=== PATIENT | male | born 1990 | race American Indian/Alaskan Native ===

== ENCOUNTER 2016-08-29 13:47 | Emergency (ER) | payer BC ==
[2016-08-29 14:01] VITALS: BP 123/73
--- NOTE | 2016-08-29 14:59 | XRay Report ---
FINAL REPORT PROCEDURE: XR FOOT 3 LT TECHNIQUE: Two views of the left foot are obtained. HISTORY: pain/swelling with injury. COMPARISON: No prior studies are available for comparison. FINDINGS: Soft tissue swelling is seen. There is slight lucency in the base of the 5th metatarsal. Is uncertain if this is due to partially fused apophysis or possibly a nondisplaced fracture. No calcaneal plantar spur is seen. IMPRESSION: Diffuse soft tissue swelling is seen. Vague linear lucency is seen in the base of the 5th metatarsal that could be partially fused apophysis but may be nondisplaced fracture.
[2016-08-29] MEDS ORDERED: NORCO 5/325 PO ONE (15:14)
[2016-08-29] MEDS ORDERED: ZOFRAN ODT PO ONE (15:14)
--- NOTE | 2016-08-29 15:50 | Emergency Department Report ---
ED Extremity Problem HPI - General Chief complaint: Extremity Injury, Lower Stated complaint: FALL/LT FOOT POSS BROKEN Time Seen by Provider: 08/29/16 15:05 Source: patient Mode of arrival: Ambulatory Limitations: No Limitations - History of Present Illness Initial comments: PT c/o L foot injury that happened 2 days ago. PT states he still can not walk on the foot. PT states he has been using old broken crutches at home and has been taking Goody's powder but no relief. PT states that he injured his foot when he was chasing his boy and he fell down 4 concrete steps. PT denies any other injury from the fall. MD Complaint: extremity pain Onset/Timin -: days(s) Location: left, other (foot ) History of Same: No Severity scale (0 -10): 10 (when standing, 8/10 when sitting) Quality: sharp, constant Consistency: constant Improves with: elevation, rest Worsens with: weight bearing, walking, palpation Associated Symptoms: denies other symptoms - Related Data Previous Rx's Medication Instructions Recorded Last Taken Type Acetaminophen/Codeine [Tylenol #3] 1 tab PO Q6H PRN #12 tab 08/29/16 Unknown Rx Ibuprofen [Motrin] 600 mg PO Q8H PRN #15 tablet 08/29/16 Unknown Rx Allergies Allergy/AdvReac Type Severity Reaction Status Date / Time No Known Allergies Allergy Unverified 08/29/16 14:01 ED Review of Systems ROS: Stated complaint: FALL/LT FOOT POSS BROKEN Other details as noted in HPI Comment: All other systems reviewed and negative Constitutional: denies: chills, fever Cardiovascular: denies: chest pain Gastrointestinal: denies: abdominal pain Musculoskeletal: as per HPI Skin: change in color Neurological: abnormal gait (due to L foot pain ). denies: headache ED Past Medical Hx - Past Medical History Previous Medical History?: No - Surgical History Past Surgical History?: Yes Additional Surgical History: right inguinal hernia repair - Social History Smoking Status: Current Every Day Smoker Substance Use Type: None - Medications Home Medications: Home Medications Medication Instructions Recorded Confirmed Last Taken Type Acetaminophen/Codeine [Tylenol #3] 1 tab PO Q6H PRN #12 tab 08/29/16 Unknown Rx Ibuprofen [Motrin] 600 mg PO Q8H PRN #15 tablet 08/29/16 Unknown Rx ED Physical Exam - General Limitations: No Limitations General appearance: alert, in no apparent distress - Head Head exam: Present: atraumatic, normocephalic, normal inspection - Eye Eye exam: Present: normal appearance, PERRL, EOMI. Absent: conjunctival injection - ENT ENT exam: Present: normal exam, normal external ear exam - Neck Neck exam: Present: normal inspection, full ROM. Absent: tenderness - Respiratory Respiratory exam: Present: normal lung sounds bilaterally. Absent: respiratory distress, chest wall tenderness - Cardiovascular Cardiovascular Exam: Present: regular rate, normal rhythm, normal heart sounds - GI/Abdominal GI/Abdominal exam: Present: soft. Absent: tenderness - Extremities Exam Extremities exam: Present: tenderness, normal capillary refill. Absent: calf tenderness - Expanded Lower Extremity Exam Left Lower Leg exam: Present: normal inspection, full ROM. Absent: tenderness Ankle exam: Present: normal inspection, full ROM. Absent: tenderness Foot/Toe exam: Present: tenderness, swelling (to the lateral foot ), ecchymosis , tenderness at base of 5th metatarsal. Absent: full ROM, deformity Neuro vascular tendon exam: Present: no vascular compromise. Absent: pulse deficit, sensory deficit, foot drop - Back Exam Back exam: Present: normal inspection, full ROM - Neurological Exam Neurological exam: Present: alert, oriented X3 - Psychiatric Psychiatric exam: Present: normal affect, normal mood - Skin Skin exam: Present: warm, dry, intact, ecchymosis ED Course Vital Signs 08/29/16 13:58 Temperature 98.3 F Pulse Rate 83 Respiratory 18 Rate Blood Pressure 123/73 O2 Sat by Pulse 100 Oximetry - Reevaluation(s) Reevaluation #1: 08/29/16 16:45 Nursing staff applied splint, pt NVI. - Pulse Oximetry Interpretation Digit-Finger Initial Pulse Oximetry Readin Actions Taken: none ED Medical Decision Making - Radiology Data Radiology results: report reviewed XR L foot- possible nondisplaced fx base of the 5th metatarsal - Differential Diagnosis fracture, contusion, sprain Critical Care Time: No Critical care attestation.: If time is entered above; I have spent that time in minutes in the direct care of this critically ill patient, excluding procedure time. ED Disposition Clinical Impression: Foot fracture, left Qualifiers: Encounter type: initial encounter Fracture type: closed Qualified Code(s): S92.902A - Unspecified fracture of left foot, initial encounter for closed fracture Disposition: DISCHARGED TO HOME OR SELFCARE Is pt being admited?: No Does the pt Need Aspirin: No Condition: Stable Instructions: Crutch Instructions (ED), Foot Fracture in Adults (ED), RICE Therapy (ED) Additional Instructions: No driving or ETOH after Tylenol #3 Prescriptions: Acetaminophen/Codeine [Tylenol #3] 1 tab PO Q6H PRN #12 tab PRN Reason: Pain , Severe (7-10) Ibuprofen [Motrin] 600 mg PO Q8H PRN #15 tablet PRN Reason: Pain Referrals: PRIMARY CARE, [Primary Care Provider] - 3-5 Days HUGO FONTAINE MD [Staff Physician] - 3-5 Days Time of Disposition: 15:55
== END 2016-08-29 16:57 | disposition home or self-care (01) ==
LOC: ED 13:47
DX: S92.902A Unspecified fracture of left foot, initial encounter for closed fracture (principal); F17.200 Nicotine dependence, unspecified, uncomplicated; W10.9XXA Fall (on) (from) unspecified stairs and steps, initial encounter; Y93.9 Activity, unspecified; Y92.9 Unspecified place or not applicable; Y99.9 Unspecified external cause status
CPT/HCPCS: 99283; Q0162

== ENCOUNTER 2016-11-14 14:20 | Emergency (ER) | payer BC ==
[2016-11-14 16:32] LABS: Bilirubin,Urine NEG (Negative); Blood,Urine NEG (Negative); Ketones,Urine NEG (Negative); Leukocyte Esterase,Urine NEG (Negative); Nitrite,Urine NEG (Negative); Protein,Urine <15 mg/dL mg/dL (Negative); Urobilinogen,Urine < 2.0 mg/dL (<2.0)
[2016-11-14] MEDS ORDERED: FLEXERIL PO ONE (18:49)
[2016-11-14] MEDS ORDERED: TORADOL IV ONE (18:49)
--- NOTE | 2016-11-14 18:49 | Emergency Department Report ---
HPI - General Chief Complaint: Back Pain/Injury Time Seen by Provider: 11/14/16 18:48 - HPI HPI: 25-year-old with no past medical history presents the ED with low back pain, for the tenderness started after walking yesterday. He denies any loss of urinalysis or loss of bowel. He denies any dysuria. He denies any blood in the urine. He has taken Motrin for his symptoms with only mild relief. ED Past Medical Hx - Past Medical History Previous Medical History?: No - Surgical History Past Surgical History?: No Additional Surgical History: right inguinal hernia repair - Social History Smoking Status: Current Every Day Smoker Substance Use Type: None - Medications Home Medications: Home Medications Medication Instructions Recorded Confirmed Last Taken Type Acetaminophen/Codeine [Tylenol #3] 1 tab PO Q6H PRN #12 tab 08/29/16 Unknown Rx Ibuprofen [Motrin] 600 mg PO Q8H PRN #15 tablet 08/29/16 Unknown Rx Cyclobenzaprine [Flexeril] 10 mg PO DAILY PRN #14 tablet 11/14/16 Unknown Rx ED Review of Systems ROS: Stated complaint: KIDNEY PAIN Other details as noted in HPI Comment: All other systems reviewed and negative Constitutional: no symptoms reported Respiratory: no symptoms reported Genitourinary: other Musculoskeletal: back pain Physical Exam - Physical Exam Vital Signs: Vital Signs 11/14/16 15:39 Temperature 98.8 F Pulse Rate 79 Respiratory 20 Rate Blood Pressure 136/90 O2 Sat by Pulse 99 Oximetry Physical Exam: Gen. alert and oriented 3 in no distress Head atraumatic normocephalic Eyes PERR LA EOMI Chest regular rate and rhythm normal S1-S2 lungs clear bilaterally Abdomen soft nondistended Back no point tenderness mild paravertebral tenderness Neuro no focal deficit. Psych normal mood. ED Course Vital Signs 11/14/16 15:39 Temperature 98.8 F Pulse Rate 79 Respiratory 20 Rate Blood Pressure 136/90 O2 Sat by Pulse 99 Oximetry - Reevaluation(s) Reevaluation #1: 11/14/16 18:57 He is better wants to go home. Critical care attestation.: If time is entered above; I have spent that time in minutes in the direct care of this critically ill patient, excluding procedure time. ED Disposition Clinical Impression: Back pain, Lumbosacral strain Disposition: DC-01 TO HOME OR SELFCARE Is pt being admited?: No Does the pt Need Aspirin: No Condition: Stable Instructions: Low Back Strain (ED) Prescriptions: Cyclobenzaprine [Flexeril] 10 mg PO DAILY PRN #14 tablet PRN Reason: Muscle Spasm Forms: Work/School Release Form(ED)
[2016-11-14 19:28] VITALS: BP 140/88
== END 2016-11-14 19:13 | disposition home or self-care (01) ==
LOC: ED 14:20
DX: S39.012A Strain of muscle, fascia and tendon of lower back, initial encounter (principal); F17.210 Nicotine dependence, cigarettes, uncomplicated; X58.XXXA Exposure to other specified factors, initial encounter; Y93.01 Activity, walking, marching and hiking; Y92.89 Other specified places as the place of occurrence of the external cause; Y99.8 Other external cause status
CPT/HCPCS: 81001; 96374; 99283; J1885

== ENCOUNTER 2018-11-06 12:29 | Inpatient (IN) | payer BC ==
--- NOTE | 2018-11-06 13:00 | Emergency Department Report ---
HPI <EPSTEINJOSE ANTONIO - Last Filed: 11/06/18 17:42> - HPI HPI: 27-year-old -Spanish male presents to the emergency department with complaint of left lower quadrant abdominal pain that began last night, along with some associated nausea without vomiting. The patient was here on May 02 of this year for similar complaints and was found to have an area of colitis and a small area of intestinal perforation. The patient was treated with IV antibiotics and monitoring, instead of going to the operating room for colon resection and colostomy. Patient says that he has been steadily improving until last night. The patient was following up outpatient with gastroenterology and says that he was due to have a colonoscopy last week but he missed his appointment. He has not taken anything for his symptoms prior to arrival today. <GIANA WISDOM Nadine - Last Filed: 11/07/18 09:59> - General Chief Complaint: Abdominal Pain Time Seen by Provider: 11/06/18 12:47 ED Past Medical Hx <CHELSIJOSE ANTONIO - Last Filed: 11/06/18 17:42> - Past Medical History Hx Congestive Heart Failure: No Hx Diabetes: No Hx Pulmonary Embolism: No Hx Asthma: No Hx COPD: No Hx Tuberculosis: No Hx HIV: No Additional medical history: perferated colon - Surgical History Hx Internal Defibrillator: No Additional Surgical History: right inguinal hernia repair - Social History Smoking Status: Current Every Day Smoker Substance Use Type: None <GIANA WISDOM - Last Filed: 11/07/18 09:59> - Medications Home Medications: Home Medications Medication Instructions Recorded Confirmed Last Taken Type Acetaminophen [Acetaminophen 650 mg SD Q4H PRN #8 supp.rect 05/06/18 Unknown Rx SUPPOS] Acetaminophen [Acetaminophen TAB] 650 mg PO Q8H PRN #12 tablet 05/06/18 Unknown Rx Amoxicillin/Potassium Clav 1 each PO BID #20 tablet 05/06/18 Unknown Rx [Augmentin 875-125 Tablet] HYDROcodone/ACETAMINOPHEN [[place] 1 each PO Q6H PRN #12 tablet 05/06/18 Unknown Rx 5-325 Tablet] Ondansetron [Zofran Odt] 4 mg PO Q4H PRN #20 tab.rapdis 05/06/18 Unknown Rx metroNIDAZOLE [Flagyl] 500 mg PO TID #30 tablet 05/06/18 Unknown Rx HYDROcodone/APAP 5-325 [[place] 1 each PO Q6HR PRN #12 tablet 11/06/18 Unknown Rx 5/325] ED Review of Systems ROS: Stated complaint: ABD PAIN Other details as noted in HPI <JOSE ANTONIO EPSTEIN - Last Filed: 11/06/18 17:42> ROS: Stated complaint: ABD PAIN Other details as noted in HPI Comment: All other systems reviewed and negative Constitutional: denies: chills, fever Eyes: denies: eye pain, vision change ENT: denies: ear pain, throat pain Respiratory: denies: cough, shortness of breath Cardiovascular: denies: chest pain, palpitations Gastrointestinal: abdominal pain, nausea Genitourinary: denies: dysuria, discharge Musculoskeletal: denies: back pain, arthralgia Skin: denies: rash, lesions Neurological: denies: headache, weakness <GIANA WISDOM - Last Filed: 11/07/18 09:59> Physical Exam - Physical Exam Vital Signs: Vital Signs 11/06/18 11/06/18 11/06/18 12:42 13:00 14:22 Temperature 98.3 F Pulse Rate 81 Respiratory 17 10 L 12 Rate Blood Pressure 113/75 Blood Pressure [Left] O2 Sat by Pulse 100 Oximetry 11/06/18 15:21 Temperature Pulse Rate 82 Respiratory 16 Rate Blood Pressure Blood Pressure 127/85 [Left] O2 Sat by Pulse 98 Oximetry <JOSE ANTONIO EPSTEIN - Last Filed: 11/06/18 17:42> - Physical Exam Vital Signs: Vital Signs 11/06/18 12:42 Temperature 98.3 F Pulse Rate 81 Respiratory 17 Rate Blood Pressure 113/75 O2 Sat by Pulse 100 Oximetry Physical Exam: GENERAL: The patient is well-developed well-nourished. HENT: Normocephalic. Atraumatic. Patient has moist mucous membranes. EYES: Extraocular motions are intact. NECK: Supple. Trachea is midline. CHEST/LUNGS: Clear to auscultation. There is no respiratory distress noted. HEART/CARDIOVASCULAR: Regular. There is no tachycardia. There is no murmur. ABDOMEN: Abdomen is soft. There is some reproducible left lower quadrant tenderness to palpation of the abdomen. No guarding. Patient has normal bowel sounds. There is no abdominal distention. SKIN: Skin is warm and dry. NEURO: The patient is awake, alert, and oriented. The patient is cooperative. The patient has no focal neurologic deficits. The patient has normal speech. MUSCULOSKELETAL: There is no tenderness or deformity. There is no evidence of acute injury. <GIANA WISDOM - Last Filed: 11/07/18 09:59> ED Course Vital Signs 11/06/18 11/06/18 11/06/18 12:42 13:00 14:22 Temperature 98.3 F Pulse Rate 81 Respiratory 17 10 L 12 Rate Blood Pressure 113/75 Blood Pressure [Left] O2 Sat by Pulse 100 Oximetry 11/06/18 15:21 Temperature Pulse Rate 82 Respiratory 16 Rate Blood Pressure Blood Pressure 127/85 [Left] O2 Sat by Pulse 98 Oximetry <CHELSIJOSE ANTONIO - Last Filed: 11/06/18 17:42> Vital Signs 11/06/18 12:42 Temperature 98.3 F Pulse Rate 81 Respiratory 17 Rate Blood Pressure 113/75 O2 Sat by Pulse 100 Oximetry <GIANA WISDOM S - Last Filed: 11/07/18 09:59> ED Medical Decision Making - Lab Data Result diagrams: 11/06/18 13:51 11/06/18 13:51 - Radiology Data Radiology results: report reviewed 2.5 cm abscess in the left lower abdomen seen on CT abdomen and pelvis scan - Medical Decision Making I reviewed surgical consultation from May, diagnosis acute colitis. According to CT scan in May, mid descending colon was affected with colitis with adjacent foci free air concerning for localized perforation. Today CT scan reveals 2.5 cm abscess in the left abdomen. Differential diagnosis includes inflammatory bowel disease versus infectious e tiology. I spoke with Mr. Wilks. He did not follow-up with GI to have the diagnostic colonoscopy as recommended. I have consulted general surgeon. Admitted to the hospital service. <EPSTEINJOSE ANTONIO - Last Filed: 11/06/18 17:42> - Lab Data Result diagrams: 11/07/18 04:36 11/07/18 04:36 - Radiology Data CT ABDOMEN AND PELVIS WITHOUT CONTRAST HISTORY: Left lower quadrant abdominal pain for one day. COMPARISON: None. TECHNIQUE: CT images of the abdomen and pelvis were obtained without admini stration of intravenous contrast. Sagittal and coronal reformatted images. All CT scans at this location are performed using CT dose reduction for ALARA by means of automated exposure control. FINDINGS: Lungs/bones: Normal. Abdomen/pelvis: There is a 2.5 cm fluid collection containing gas just anterior to the descending colon on image 92 of series 2. This has the appearance of a small abscess. This system an abscess appears to partially extend into the left lateral abdominal wall. The colon in this area is unremarkable. No significant diverticular disease. No evidence for bowel obstr uction or focal bowel wall thickening. The appendix is normal. There is mild fatty infiltration throughout the liver. The biliary system, pancreas, spleen, kidneys and adrenal glands are unremarkable. The aorta and remaining vascular structures are unremarkable. The bladder is normal. No evidence for ascites, free air or adenopathy. IMPRESSION: 1. 2.5 cm fluid collection in the left abdomen containing gas consistent with a small abscess. The etiology of this abscess is unclear. There is no significant diverticular disease in the descending colon. - Medical Decision Making I initially saw this patient in the emergency department for the complaint of s ome acute left lower quadrant abdominal pain. He has a history of having colitis and some subsequent mild perforation of the colon in May of this year. At that time they decided to go with a watch and wait scenario with antibiotics as opposed to surgical intervention. The patient appeared to be improving. However he admits to noncompliance to follow up with gastroenterology and his recent colonoscopy. Patient's labs have been unremarkable including no significant leukocytosis. Vital signs stable throughout his records including being afebrile. Abdominal x-ray does not show any acute process. Her CT scan with IV contrast was done. This was signed out to my colleague, Dr. Epstein, to follow up with results with the plan of discharge if normal and consultation and/or admission if necessary. In reviewing the CT scan results, it shows that he has a 2.5 cm abscess to the left lower abdomen with unknown etiology. General surgery was contacted and the patient was admitted to the hospitalist service. - Differential Diagnosis diverticulitis, abscess, perforation, constipation <GIANA WISDOM - Last Filed: 11/07/18 09:59> Critical care attestation.: If time is entered above; I have spent that time in minutes in the direct care of this critically ill patient, excluding procedure time. <JOSE ANTONIO EPSTEIN - Last Filed: 11/06/18 17:42> Critical Care Time: No Critical care attestation.: If time is entered above; I have spent that time in minutes in the direct care of this critically ill patient, excluding procedure time. <GIANA WISDOM - Last Filed: 11/07/18 09:59> ED Disposition Is pt being admited?: No Does the pt Need Aspirin: No <JOSE ANTONIO EPSTEIN - Last Filed: 11/06/18 17:42> Is pt being admited?: Yes Time of Disposition: 16:00 <GIANA WISDOM - Last Filed: 11/07/18 09:59> Clinical Impression: Abdominal abscess Abdominal pain Qualifiers: Abdominal location: left lower quadrant Qualified Code(s): R10.32 - Left lower quadrant pain Disposition: OP ADMIT IP TO THIS HOSP Condition: Fair
--- NOTE | 2018-11-06 13:27 | XRay Report ---
ABDOMEN 2 VIEW(S) INDICATION / CLINICAL INFORMATION: Abd pain. COMPARISON: CT of the abdomen and pelvis on 05/05/2018 FINDINGS: TUBES / LINES: None. BOWEL GAS PATTERN/EXTRALUMINAL GAS: No significant abnormality. No pneumatosis or free air identified . ADDITIONAL FINDINGS: No significant additional findings. IMPRESSION: 1. No acute findings. Signer Name: Jayson Gutiérrez MD Signed: 11/06/2018 1:22 PM Workstation Name: [id number]
[2018-11-06] MEDS ORDERED: NACL 0.9% 1000 ML 1,000 ML IV ONE (13:59)
[2018-11-06] MEDS ORDERED: MORPHINE IV ONE ×2 (13:59→17:24)
[2018-11-06 14:08] LABS: Basophils % (Auto) 0.2 % (0.0-1.8); Eosinophils % (Auto) 0.3 % (0.0-4.3); Hematocrit 42.1 % (35.5-45.6); Hemoglobin 14.2 gm/dl (11.8-15.2); Lymphocytes # (Auto) 2.3 K/mm3 (1.2-5.4); Lymphocytes % (Auto) 25.5 % (13.4-35.0); Mean Corpuscular HGB Conc 34 % (32-34); Mean Corpuscular Volume 90 fl (84-94); Monocytes # (Auto) 0.6 K/mm3 (0.0-0.8); Monocytes % (Auto) 6.7 % (0.0-7.3); Platelet Count 149 K/mm3 (140-440); Red Blood Count 4.66 M/mm3 (3.65-5.03); Red Cell Distribution Width 13.9 % (13.2-15.2)
[2018-11-06 14:28] LABS: Alanine Aminotransferase 54 units/L (7-56); Albumin 4.1 g/dL (3.9-5); BUN/Creatinine Ratio 17; Blood Urea Nitrogen 12 mg/dL (9-20); Calcium 9.1 mg/dL (8.4-10.2); Hemolysis Index 5
[2018-11-06 14:31] LABS: Bilirubin,Direct < 0.2 mg/dL (0-0.2)
--- NOTE | 2018-11-06 16:22 | Cat Scan Report ---
CT ABDOMEN AND PELVIS WITHOUT CONTRAST HISTORY: Left lower quadrant abdominal pain for one day. COMPARISON: None. TECHNIQUE: CT images of the abdomen and pelvis were obtained without administration of intravenous co ntrast. Sagittal and coronal reformatted images. All CT scans at this location are performed using CT dose reduction for ALARA by means of automated exposure control. FINDINGS: Lungs/bones: Normal. Abdomen/pelvis: There is a 2.5 cm fluid collection containing gas just anterior to the descending co juan r on image 92 of series 2. This has the appearance of a small abscess. This system an abscess appea rs to partially extend into the left lateral abdominal wall. The colon in this area is unremarkable. No significant diverticular disease. No evidence for bowel obstruction or focal bowel wall thickening . The appendix is normal. There is mild fatty infiltration throughout the liver. The biliary system, pancreas, spleen, kidneys and adrenal glands are unremarkable. The aorta and remaining vascular structures are unremarkable. The bladder is normal. No evidence for ascites, free air or adenopathy. IMPRESSION: 1. 2.5 cm fluid collection in the left abdomen containing gas consistent with a small abscess. The et iology of this abscess is unclear. There is no significant diverticular disease in the descending col on. Signer Name: Aubrey Olea Jr, MD Signed: 11/06/2018 4:18 PM Workstation Name: [id number]
[2018-11-06] MEDS ORDERED: ZOFRAN IV ONE (17:24)
[2018-11-06] MEDS ORDERED: NACL 0.9% 1000 ML IV ONE (18:17)
[2018-11-06] MEDS ORDERED: NACL 0.9% 1000 ML 3,000 ML ONE (20:25)
[2018-11-06] MEDS ORDERED: DILAUDID IV PRN (20:36)
[2018-11-06] MEDS ORDERED: DILAUDID ONE (20:40)
[2018-11-06] MEDS ORDERED: MAXIPIME/NS 2 GM/100 ML 2 GM/100 ML BAG IV SCH (22:00)
--- NOTE | 2018-11-06 22:41 | History and Physical Report ---
History of Present Illness Date of examination: 11/06/18 Date of admission: 11/06/18 17:43 Chief complaint: Abdominal pain since last night History of present illness: 27-year-old -[place] male presents to the emergency department with left lower quadrant abdominal pain that began last night, along with some associated nausea without vomiting. The patient was here on May 02 of this year for similar complaints and was found to have an area of colitis and a small area of intestinal perforation. The patient was treated with IV antibiotics and monitoring, instead of going to the operating room for colon resection and colostomy. Patient says that he has been steadily improving until last night. The patient was following up outpatient with gastroenterology and says that he was due to have a colonoscopy last week but he missed his appointment. He has not taken anything for his symptoms prior to arrival today. Hospitalization discharge from 05/02/18 through 05/06/18 Condition: Stable Hospital course: Patient is 27 yo black male without chronic medical problem who presented with abdominal pains. * CT abd/pelvis with and without contrast IMPRESSION: Thickening of the wall of the mid descending colon, concerning for colitis of infectious, inflammatory, or less likely ischemic causes. Adjacent foci of free air as well as small amount of free fluid in the left paracolic gutter and pelvis concerning for localized perforation. * 2v CXR: no acute findings -Abd pains with acute Colitis with localized microperforation most likely fi shbone (he ate whiten fish day prior to abd pains) vs IBD vs other: Gen surgery is following, start diet, monitor closely, d/w GI, this perforation possible is fishbone perforation. -Sepsis Colitis, poa: GI following, treat with iv abx, IVF and follow cultures -Hypokalemia: replete and recheck -UTI ruled out -Thrombocytopenia, possible infection related: repeat and monitor closely, stopped sq lovenox, resolved -Constipation: dulcolax suppository given with success Patient demands to go home, he did have a mild temp of 100.2 around 10pm last night, d/w Dr. Ramires and patient, Ok to d/c per Surgeon. Disposition: TO HOME OR SELFCARE Time spent for discharge: 35 minutes ---- Past Medical History perferated colon Surgical History Hx Internal Defibrillator: No Additional Surgical History: right inguinal hernia repair Social History Smoking Status: Current Every Day Smoker Substance Use Type: None Family History Htn Review of Systems ROS: Stated complaint: ABD PAIN Other details as noted in HPI Comment: All other systems reviewed and negative Constitutional: denies: chills, fever Eyes: denies: eye pain, vision change ENT: denies: ear pain, throat pain Respiratory: denies: cough, shortness of breath Cardiovascular: denies: chest pain, palpitations Gastrointestinal: abdominal pain, nausea Genitourinary: denies: dysuria, discharge Musculoskeletal: denies: back pain, arthralgia Skin: denies: rash, lesions Neurological: denies: headache, weakness Medications and Allergies Allergies Allergy/AdvReac Type Severity Reaction Status Date / Time No Known Allergies Allergy Unverified 08/29/16 14:01 Home Medications Medication Instructions Recorded Confirmed Last Taken Type Acetaminophen [Acetaminophen 650 mg RI Q4H PRN #8 supp.rect 05/06/18 Unknown Rx SUPPOS] Acetaminophen [Acetaminophen TAB] 650 mg PO Q8H PRN #12 tablet 05/06/18 Unknown Rx Amoxicillin/Potassium Clav 1 each PO BID #20 tablet 05/06/18 Unknown Rx [Augmentin 875-125 Tablet] HYDROcodone/ACETAMINOPHEN [[place] 1 each PO Q6H PRN #12 tablet 05/06/18 Unknown Rx 5-325 Tablet] Ondansetron [Zofran Odt] 4 mg PO Q4H PRN #20 tab.rapdis 05/06/18 Unknown Rx metroNIDAZOLE [Flagyl] 500 mg PO TID #30 tablet 05/06/18 Unknown Rx HYDROcodone/APAP 5-325 [[place] 1 each PO Q6HR PRN #12 tablet 11/06/18 Unknown Rx 5/325] Active Meds: Active Medications Hydromorphone HCl (Dilaudid) 0.5 mg IV Q3H PRN PRN Reason: Pain , Severe (7-10) Last Admin: 11/06/18 20:48 Dose: 0.5 mg Documented by: Cefepime HCl (Maxipime/Ns 2 Gm/100 Ml) 2 gm in 100 mls @ 200 mls/hr IV Q8HR MENDOZA; Protocol Metronidazole (Flagyl 500 Mg/100 Ml) 500 mg in 100 mls @ 100 mls/hr IV Q8HR MENDOZA; Protocol Exam - Constitutional Vitals: Temp Pulse Resp BP Pulse Ox 99.5 F 78 20 121/83 99 11/06/18 21:26 11/06/18 21:26 11/06/18 21:26 11/06/18 21:26 11/06/18 21:26 General appearance: Present: no acute distress, well-nourished - EENT Eyes: Present: PERRL ENT: hearing intact, clear oral mucosa - Neck Neck: Present: supple, normal ROM - Respiratory Respiratory effort: normal Respiratory: bilateral: CTA - Cardiovascular Heart rate: 78 Rhythm: regular Heart Sounds: Present: S1 & S2. Absent: rub, click - Extremities Extremities: no ischemia, pulses intact, pulses symmetrical, No edema Peripheral Pulses: within normal limits - Abdominal General gastrointestinal: Present: soft, non-tender, non-distended, normal bowel sounds Localized gastrointestinal: tender: LLQ, guarding: LLQ Male genitourinary: Present: normal - Rectal Rectal Exam: deferred - Integumentary Integumentary: Present: clear, warm, dry - Musculoskeletal Musculoskeletal: gait normal, strength equal bilaterally - Psychiatric Psychiatric: appropriate mood/affect, intact judgment & insight - Neurologic Neurologic: CNII-XII intact, moves all extremities - Allied Health Allied health notes reviewed: nursing, case management Results - Labs CBC & Chem 7: 11/07/18 04:36 11/07/18 04:36 Labs: Laboratory Last Values WBC 8.8 K/mm3 (4.5-11.0) 11/06/18 13:51 RBC 4.66 M/mm3 (3.65-5.03) 11/06/18 13:51 Hgb 14.2 gm/dl (11.8-15.2) 11/06/18 13:51 Hct 42.1 % (35.5-45.6) 11/06/18 13:51 MCV 90 fl (84-94) 11/06/18 13:51 MCH 30 pg (28-32) 11/06/18 13:51 MCHC 34 % (32-34) 11/06/18 13:51 RDW 13.9 % (13.2-15.2) 11/06/18 13:51 Plt Count 149 K/mm3 (140-440) 11/06/18 13:51 Lymph % (Auto) 25.5 % (13.4-35.0) 11/06/18 13:51 Dare % (Auto) 6.7 % (0.0-7.3) 11/06/18 13:51 Eos % (Auto) 0.3 % (0.0-4.3) 11/06/18 13:51 Baso % (Auto) 0.2 % (0.0-1.8) 11/06/18 13:51 Lymph # 2.3 K/mm3 (1.2-5.4) 11/06/18 13:51 Dare # 0.6 K/mm3 (0.0-0.8) 11/06/18 13:51 Eos # 0.0 K/mm3 (0.0-0.4) 11/06/18 13:51 Baso # 0.0 K/mm3 (0.0-0.1) 11/06/18 13:51 Seg Neutrophils % 67.3 % (40.0-70.0) 11/06/18 13:51 Seg Neutrophils # 5.9 K/mm3 (1.8-7.7) 11/06/18 13:51 Sodium 138 mmol/L (137-145) 11/06/18 13:51 Potassium 3.7 mmol/L (3.6-5.0) 11/06/18 13:51 Chloride 102.9 mmol/L (98-107) 11/06/18 13:51 Carbon Dioxide 25 mmol/L (22-30) 11/06/18 13:51 14 mmol/L 11/06/18 13:51 BUN 12 mg/dL (9-20) 11/06/18 13:51 0.7 mg/dL (0.8-1.5) L 11/06/18 13:51 Estimated GFR > 60 ml/min 11/06/18 13:51 17 % 11/06/18 13:51 Glucose 99 mg/dL (75-100) 11/06/18 13:51 Calcium 9.1 mg/dL (8.4-10.2) 11/06/18 13:51 0.60 mg/dL (0.1-1.2) 11/06/18 13:51 < 0.2 mg/dL (0-0.2) 11/06/18 13:51 AST 23 units/L (5-40) 11/06/18 13:51 ALT 54 units/L (7-56) 11/06/18 13:51 63 units/L (35-129) 11/06/18 13:51 7.5 g/dL (6.3-8.2) 11/06/18 13:51 4.1 g/dL (3.9-5) 11/06/18 13:51 1.2 % 11/06/18 13:51 32 units/L (13-60) 11/06/18 13:51 - Imaging and Cardiology Imaging and Cardiology: CT Abdomen IMPRESSION: 1. 2.5 cm fluid collection in the left abdomen containing gas consistent with a small abscess. The etiology of this abscess is unclear. There is no significant diverticular disease in the descending colon. Assessment and Plan Advance Directives: Yes (Full code) VTE prophylaxis?: Chemical Plan of care discussed with patient/family: Yes - Patient Problems (1) Abdominal abscess Current Visit: Yes Status: Acute Plan to address problem: Had Colitis and microperforation inJan 2019 Went home AMA without proper ABX covcolleenage Was supposed to have a colonoscopy recently which he missed Started on IV Zosyn amd IV F;agy; Santa surgery consult and GI consult requested (2) DVT prophylaxis Current Visit: No Status: Acute Plan to address problem: OnLovenox and GI prophylaxis
[2018-11-06] MEDS ORDERED: TYLENOL PO PRN (22:46)
[2018-11-06] MEDS ORDERED: ZOFRAN IV PRN (22:46)
[2018-11-06] MEDS ORDERED: SODIUM CHLORIDE FLUSH SYRINGE 10 ML IV PRN (22:46)
[2018-11-06 22:54] LABS: Bilirubin,Urine NEG (Negative); Blood,Urine NEG (Negative); Color,Urine Yellow (Yellow); Mucus,Urine FEW /HPF; Protein,Urine <15 mg/dL mg/dL (Negative); RBC,Urine < 1.0 /HPF (0.0-6.0); Urobilinogen,Urine < 2.0 mg/dL (<2.0); WBC,Urine < 1.0 /HPF (0.0-6.0)
[2018-11-06] MEDS: FLAGYL 500 MG/100 ML 500 MG/100 ML BAG IV SCH (23:04)
[2018-11-06] MEDS: D5NS 1,000 ML IV SCH (23:04)
[2018-11-06] MEDS: SODIUM CHLORIDE FLUSH SYRINGE 10 ML IV SCH (23:05)
[2018-11-06] MEDS: DILAUDID IV PRN (23:05)
[2018-11-07] MEDS: ZOSYN/NS 4.5GM/100ML 4.5 GM/100 ML VIAL IV SCH ×4 (00:35→22:01)
[2018-11-07] MEDS: DILAUDID IV PRN ×4 (02:20→19:04)
[2018-11-07 05:22] LABS: Basophils % (Auto) 0.2 % (0.0-1.8); Eosinophils % (Auto) 0.2 % (0.0-4.3); Hematocrit 39.6 % (35.5-45.6); Hemoglobin 13.6 gm/dl (11.8-15.2); Lymphocytes # (Auto) 2.1 K/mm3 (1.2-5.4); Lymphocytes % (Auto) 19.6 % (13.4-35.0); Mean Corpuscular HGB Conc 34 % (32-34); Mean Corpuscular Volume 90 fl (84-94); Monocytes # (Auto) 0.9 K/mm3 (0.0-0.8); Platelet Count 139 K/mm3 (140-440); Red Blood Count 4.38 M/mm3 (3.65-5.03); Red Cell Distribution Width 13.8 % (13.2-15.2)
[2018-11-07 05:53] LABS: Alanine Aminotransferase 42 units/L (7-56); Albumin 3.7 g/dL (3.9-5); BUN/Creatinine Ratio 13; Blood Urea Nitrogen 9 mg/dL (9-20); Calcium 8.4 mg/dL (8.4-10.2); Hemolysis Index 4
[2018-11-07] MEDS: FLAGYL 500 MG/100 ML 500 MG/100 ML BAG IV SCH ×2 (07:51→13:10)
[2018-11-07] MEDS: PEPCID IV SCH ×2 (10:10→22:02)
[2018-11-07] MEDS: SODIUM CHLORIDE FLUSH SYRINGE 10 ML IV SCH ×2 (10:10→22:02)
--- NOTE | 2018-11-07 10:51 | Consultation ---
History of Present Illness Consult date: 11/07/18 Reason for consult: abdominal pain Requesting physician: NATALI BLACK Chief complaint: left sided abdominal pain - History of present illness History of present illness: 27yo M returns with left-sided abdominal pain. We previously met him in May of this year for a presumed small perforation near the descending colon. It is documented that patient ultimately demanded to be discharged (he denies that) and was soon after taken by his mother to the hospital in [place]. He reports that in [place] they admitted him. He was found to have a well- defined abscess that was drained. He says the drain was in place for 3 days. PICC line was placed and he had antibiotics for 10-14 days. He did not get any follow-up scans. He did not follow-up with the senior qualitative researcher or the surgeon. They recommended a colonoscopy and possible bowel resection just like we did. He reports he did well up until yesterday. His pain had resolved but came back yesterday. Therefore, he returns for evaluation. The pain is less than what it was in May. Denies any fevers or chills. Did have nausea. This has resolved. No issues with his bowel movements. Past History Past Medical History: No medical history Past Surgical History: hernia repair (right inguinal) Social history: smoking. denies: alcohol abuse Family history: no significant family history Medications and Allergies Allergies Allergy/AdvReac Type Severity Reaction Status Date / Time No Known Allergies Allergy Unverified 08/29/16 14:01 Home Medications Medication Instructions Recorded Confirmed Last Taken Type Acetaminophen [Acetaminophen 650 mg AR Q4H PRN #8 supp.rect 05/06/18 Unknown Rx SUPPOS] Acetaminophen [Acetaminophen TAB] 650 mg PO Q8H PRN #12 tablet 05/06/18 Unknown Rx Amoxicillin/Potassium Clav 1 each PO BID #20 tablet 05/06/18 Unknown Rx [Augmentin 875-125 Tablet] HYDROcodone/ACETAMINOPHEN [[place] 1 each PO Q6H PRN #12 tablet 05/06/18 Unknown Rx 5-325 Tablet] Ondansetron [Zofran Odt] 4 mg PO Q4H PRN #20 tab.rapdis 05/06/18 Unknown Rx metroNIDAZOLE [Flagyl] 500 mg PO TID #30 tablet 05/06/18 Unknown Rx HYDROcodone/APAP 5-325 [[place] 1 each PO Q6HR PRN #12 tablet 11/06/18 Unknown Rx 5/325] Active Meds: Active Medications Acetaminophen (Tylenol) 650 mg PO Q4H PRN PRN Reason: Pain MILD(1-3)/Fever >100.5/NOBLE Famotidine (Pepcid) 20 mg IV BID MENDOZA Last Admin: 11/07/18 10:10 Dose: 20 mg Documented by: Hydromorphone HCl (Dilaudid) 1 mg IV Q3H PRN PRN Reason: Pain , Severe (7-10) Last Admin: 11/07/18 10:14 Dose: 1 mg Documented by: Metronidazole (Flagyl 500 Mg/100 Ml) 500 mg in 100 mls @ 100 mls/hr IV Q8HR MENDOZA; Protocol Last Admin: 11/07/18 07:51 Dose: 100 mls/hr Documented by: Dextrose/Sodium Chloride (D5ns) 1,000 mls @ 75 mls/hr IV DIRECT MENDOZA Last Admin: 11/06/18 23:04 Dose: 75 mls/hr Documented by: Piperacillin Sod/Tazobactam Sod (Zosyn/Ns 4.5gm/100ml) 4.5 gm in 100 mls @ 200 mls/hr IV Q8HR MENDOZA; Protocol Last Admin: 11/07/18 07:13 Dose: 200 mls/hr Documented by: Ondansetron HCl (Zofran) 4 mg IV Q8H PRN PRN Reason: Nausea And Vomiting Sodium Chloride (Sodium Chloride Flush Syringe 10 Ml) 10 ml IV BID MENDOZA Last Admin: 11/07/18 10:10 Dose: 10 ml Documented by: Sodium Chloride (Sodium Chloride Flush Syringe 10 Ml) 10 ml IV PRN PRN PRN Reason: LINE FLUSH Last Admin: 11/07/18 02:20 Dose: 10 ml Documented by: Review of Systems - Constitutional no fever, no chills, no chronic pain - Cardiovascular no chest pain, no shortness of breath - Respiratory no cough - Gastrointestinal abdominal pain, nausea, no vomiting, no change in bowel habits, no BRBPR, no dyspepsia/bloating - Genitourinary no dysuria, no flank pain - Muskuloskeletal no low back pain Exam Vital Signs Temp Pulse Resp BP Pulse Ox 98.3 F 81 17 113/75 100 11/06/18 12:42 11/06/18 12:42 11/06/18 12:42 11/06/18 12:42 11/06/18 12:42 - General physical appearance Positive: well developed, well nourished, no distress, no pain - Eyes Positive: normal occular movement. Negative: icteric - Respiratory Positive: normal expansion, normal respiratory effort, clear to auscultation - Cardiovascular Rhythm: regular - Abdomen Abdomen: Present: soft, tender (focal in left mid-abdomen), bowel sounds hypoactive. Absent: distended, masses, rebound, guarding, rigid, wound - Integumentary no rash, no growths, no abnormal pigmentation - Neurologic Neurologic: alert and oriented to time, place and person, motor strength and s ensation are grossly intact - Psychiatric Psychiatric: appropriate mood/affect, intact judgment & insight, cooperative Results - Labs 11/07/18 04:36 11/07/18 04:36 Abnormal lab results 11/06/18 11/06/18 11/07/18 Range/Units 13:51 22:16 04:36 Plt Count 139 L (140-440) K/mm3 [place] % (Auto) 8.0 H (0.0-7.3) % [place] # 0.9 H (0.0-0.8) K/mm3 Seg Neutrophils % 72.0 H (40.0-70.0) % Creatinine 0.7 L (0.8-1.5) mg/dL Glucose (75-100) mg/dL Albumin (3.9-5) g/dL Ur Specific [place] 1.046 H (1.003-1.030) 11/07/18 Range/Units 04:36 Plt Count (140-440) K/mm3 [place] % (Auto) (0.0-7.3) % [place] # (0.0-0.8) K/mm3 Seg Neutrophils % (40.0-70.0) % Creatinine 0.7 L (0.8-1.5) mg/dL Glucose 109 H (75-100) mg/dL Albumin 3.7 L (3.9-5) g/dL Ur Specific [place] (1.003-1.030) Diabetes panel 11/06/18 11/06/18 11/07/18 Range/Units 13:51 23:51 04:36 Sodium 138 137 (137-145) mmol/L Potassium 3.7 3.6 (3.6-5.0) mmol/L Chloride 102.9 101.7 (98-107) mmol/L Carbon Dioxide 25 23 (22-30) mmol/L BUN 12 9 (9-20) mg/dL Creatinine 0.7 L 0.7 L (0.8-1.5) mg/dL Glucose 99 109 H (75-100) mg/dL Hemoglobin A1c 5.7 (4-6) % Calcium 9.1 8.4 (8.4-10.2) mg/dL AST 23 17 (5-40) units/L ALT 54 42 (7-56) units/L Alkaline Phosphatase 63 58 (35-129) units/L Total Protein 7.5 6.8 (6.3-8.2) g/dL Albumin 4.1 3.7 L (3.9-5) g/dL Calcium panel 11/06/18 11/07/18 Range/Units 13:51 04:36 Calcium 9.1 8.4 (8.4-10.2) mg/dL Albumin 4.1 3.7 L (3.9-5) g/dL Pituitary panel 11/06/18 11/07/18 Range/Units 13:51 04:36 Sodium 138 137 (137-145) mmol/L Potassium 3.7 3.6 (3.6-5.0) mmol/L Chloride 102.9 101.7 (98-107) mmol/L Carbon Dioxide 25 23 (22-30) mmol/L BUN 12 9 (9-20) mg/dL Creatinine 0.7 L 0.7 L (0.8-1.5) mg/dL Glucose 99 109 H (75-100) mg/dL Calcium 9.1 8.4 (8.4-10.2) mg/dL Adrenal panel 11/06/18 11/07/18 Range/Units 13:51 04:36 Sodium 138 137 (137-145) mmol/L Potassium 3.7 3.6 (3.6-5.0) mmol/L Chloride 102.9 101.7 (98-107) mmol/L Carbon Dioxide 25 23 (22-30) mmol/L BUN 12 9 (9-20) mg/dL Creatinine 0.7 L 0.7 L (0.8-1.5) mg/dL Glucose 99 109 H (75-100) mg/dL Calcium 9.1 8.4 (8.4-10.2) mg/dL Total Bilirubin 0.60 1.00 (0.1-1.2) mg/dL AST 23 17 (5-40) units/L ALT 54 42 (7-56) units/L Alkaline Phosphatase 63 58 (35-129) units/L Total Protein 7.5 6.8 (6.3-8.2) g/dL Albumin 4.1 3.7 L (3.9-5) g/dL - Imaging CT scan - abdomen: report reviewed, image reviewed CT scan - pelvis: report reviewed, image reviewed Assessment and Plan - Patient Problems (1) Abdominal abscess Current Visit: Yes Status: Acute Plan to address problem: Pt stable. There is no need for urgent surgical intervention. I reviewed the scans from May. He appears to have a small, well-defined fluid collection in the exact same spot as where we saw the small collection of free air and fluid. As he had part of his care in [place], it is difficult to know if this is a recurrence or unresolved issue. If he is accurate in that his pain completely resolved, then perhaps this is a recurrence. We will try to obtain records from [place] to figure out his whole picture. This small fluid collection should respond to IV Abx without a drain placement. If this is an unresolved issue, then we may have to consider a drain. Hopefully the records will clarify this issue. He has no good reason as to why he did not follow through with the colonoscopy and possible surgery that they recommended as well. Now that his insurance will in 2 weeks, he is in a hurry to get everything done. I explained to him the significant risks of doing a colonoscopy when there is potentially active inflammation. Significant damage could be done to the colon which may necessitate emergency surgery and a colostomy bag. This was explained to the mother as well who was frustrated that we discharged her son with a life- threatening abscess. I very clearly told her that we repeated the scan on May 05 and there was no evidence of a well-defined abscess. In addition, it is documented that the patient demanded to leave. I also explained to her that it is difficult to care for a patient that goes to multiple hospitals for his care. It is best to stay at one hospital and get all of his care. 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 I think the best plan would be to calm this area of infection with antibiotics. Radhaa a colonoscopy done as an outpatient. Then most likely set up surgery electively. This would be the safest route to go. At this point, it may be worthwhile to have infectious disease give an opinion as well since he may have failed therapy the first time. We'll follow along. Please call with questions. Time=40min
--- NOTE | 2018-11-07 11:03 | Gastroenterology Consultation ---
<SOCORRO GREER - Last Filed: 11/07/18 11:26> History of Present Illness - Reason for Consult Consult date: 11/07/18 LLQ abscess Requesting physician: NATALI BLACK - History of Present Illness Patient is a 27 y/o male who presented to ED with recurrent left-sided abdominal pain with associated nausea. Upon admission, abd CT showed a 2.5 cm abscess in left lower abdomen to which GI has been consulted. Patient is previously known to our service from a consult earlier this year in May for similar complaints and was found to have an area of colitis with a small area of intestinal perforation thought to be 2/2 infection vs related to fish bone. Patient was being treated with conservative management (IV antibiotics) with symptoms improving but signed out AMA before treatment was completed. He reports soon after leaving [facility], he was taken to a hospital in [place] by his mother and was found to have an abscess which was drained (drain in place x 3days) and completed a full course of 10-14 days of antibiotics. An outpatient colonoscopy was recommend here and upon d/c at [place], however patient was lost to f/u (he has not f/u with surgery either). This morning patient was resting in bed w/o acute distress. Reports his abd pain had been resolved until yesterday. Nausea now resolved and tolerating clears. Denies fever, CP, SOB, vomiting, diarrhea, constipation, or signs of GI bleeding. No hx or Fhx of IBD. Past History Past Medical History: other (as per HPI) Past Surgical History: Other (right inguinal hernia repair) Social history: smoking Family history: hypertension Medications and Allergies Allergies Allergy/AdvReac Type Severity Reaction Status Date / Time No Known Allergies Allergy Unverified 08/29/16 14:01 Home Medications Medication Instructions Recorded Confirmed Last Taken Type Acetaminophen [Acetaminophen 650 mg NM Q4H PRN #8 supp.rect 05/06/18 Unknown Rx SUPPOS] Acetaminophen [Acetaminophen TAB] 650 mg PO Q8H PRN #12 tablet 05/06/18 Unknown Rx Amoxicillin/Potassium Clav 1 each PO BID #20 tablet 05/06/18 Unknown Rx [Augmentin 875-125 Tablet] HYDROcodone/ACETAMINOPHEN [[place] 1 each PO Q6H PRN #12 tablet 05/06/18 Unknown Rx 5-325 Tablet] Ondansetron [Zofran Odt] 4 mg PO Q4H PRN #20 tab.rapdis 05/06/18 Unknown Rx metroNIDAZOLE [Flagyl] 500 mg PO TID #30 tablet 05/06/18 Unknown Rx HYDROcodone/APAP 5-325 [[place] 1 each PO Q6HR PRN #12 tablet 11/06/18 Unknown Rx 5/325] Active Meds: Active Medications Acetaminophen (Tylenol) 650 mg PO Q4H PRN PRN Reason: Pain MILD(1-3)/Fever >100.5/NOBLE Famotidine (Pepcid) 20 mg IV BID MENDOZA Last Admin: 11/07/18 10:10 Dose: 20 mg Documented by: Hydromorphone HCl (Dilaudid) 1 mg IV Q3H PRN PRN Reason: Pain , Severe (7-10) Last Admin: 11/07/18 10:14 Dose: 1 mg Documented by: Metronidazole (Flagyl 500 Mg/100 Ml) 500 mg in 100 mls @ 100 mls/hr IV Q8HR MENDOZA; Protocol Last Admin: 11/07/18 07:51 Dose: 100 mls/hr Documented by: Dextrose/Sodium Chloride (D5ns) 1,000 mls @ 75 mls/hr IV DIRECT MENDOZA Last Admin: 11/06/18 23:04 Dose: 75 mls/hr Documented by: Piperacillin Sod/Tazobactam Sod (Zosyn/Ns 4.5gm/100ml) 4.5 gm in 100 mls @ 200 mls/hr IV Q8HR MENDOZA; Protocol Last Admin: 11/07/18 07:13 Dose: 200 mls/hr Documented by: Ondansetron HCl (Zofran) 4 mg IV Q8H PRN PRN Reason: Nausea And Vomiting Sodium Chloride (Sodium Chloride Flush Syringe 10 Ml) 10 ml IV BID MENDOZA Last Admin: 11/07/18 10:10 Dose: 10 ml Documented by: Sodium Chloride (Sodium Chloride Flush Syringe 10 Ml) 10 ml IV PRN PRN PRN Reason: LINE FLUSH Last Admin: 11/07/18 02:20 Dose: 10 ml Documented by: medications reviewed/updated as required Review of Systems - Review of Systems All systems: negative Gastrointestinal: abdominal pain, nausea Exam - Constitutional Vital Signs: Temp Pulse Resp BP Pulse Ox 98.6 F 79 18 112/67 96 11/07/18 05:48 11/07/18 05:48 11/07/18 05:48 11/07/18 05:48 11/07/18 05:48 General appearance: no acute distress - Respiratory Respiratory effort: normal - Cardiovascular Rhythm: regular - Gastrointestinal General gastrointestinal: Present: soft, tender (LLQ), non-distended, hypoactive bowel sounds - Neurologic Neurological: alert and oriented x3 - Labs CBC & Chem 7: 11/07/18 04:36 11/07/18 04:36 Lab Results: Laboratory Results - last 24 hr 11/06/18 11/06/18 11/06/18 13:51 13:51 22:16 WBC 8.8 RBC 4.66 Hgb 14.2 Hct 42.1 MCV 90 MCH 30 MCHC 34 RDW 13.9 Plt Count 149 Lymph % (Auto) 25.5 [place] % (Auto) 6.7 Eos % (Auto) 0.3 Baso % (Auto) 0.2 Lymph # 2.3 [place] # 0.6 Eos # 0.0 Baso # 0.0 Seg Neutrophils % 67.3 Seg Neutrophils # 5.9 Sodium 138 Potassium 3.7 Chloride 102.9 Carbon Dioxide 25 Anion Gap 14 BUN 12 Creatinine 0.7 L Estimated GFR > 60 BUN/Creatinine Ratio 17 Glucose 99 Hemoglobin A1c Calcium 9.1 Total Bilirubin 0.60 Direct Bilirubin < 0.2 AST 23 ALT 54 Alkaline Phosphatase 63 Total Protein 7.5 Albumin 4.1 Albumin/Globulin Ratio 1.2 Lipase 32 Urine Color Yellow Urine Turbidity Clear Urine pH 7.0 Ur Specific [place] 1.046 H Urine Protein <15 mg/dl Urine Glucose (UA) Neg Urine Ketones Neg Urine Blood Neg Urine Nitrite Neg Urine Bilirubin Neg Urine Urobilinogen < 2.0 Ur Leukocyte Esterase Neg Urine WBC (Auto) < 1.0 Urine RBC (Auto) < 1.0 U Epithel Cells (Auto) < 1.0 Urine Mucus Few 11/06/18 11/07/18 11/07/18 23:51 04:36 04:36 WBC 10.7 RBC 4.38 Hgb 13.6 Hct 39.6 MCV 90 MCH 31 MCHC 34 RDW 13.8 Plt Count 139 L Lymph % (Auto) 19.6 [place] % (Auto) 8.0 H Eos % (Auto) 0.2 Baso % (Auto) 0.2 Lymph # 2.1 [place] # 0.9 H Eos # 0.0 Baso # 0.0 Seg Neutrophils % 72.0 H Seg Neutrophils # 7.7 Sodium 137 Potassium 3.6 Chloride 101.7 Carbon Dioxide 23 Anion Gap 16 BUN 9 Creatinine 0.7 L Estimated GFR > 60 BUN/Creatinine Ratio 13 Glucose 109 H Hemoglobin A1c 5.7 Calcium 8.4 Total Bilirubin 1.00 Direct Bilirubin AST 17 ALT 42 Alkaline Phosphatase 58 Total Protein 6.8 Albumin 3.7 L Albumin/Globulin Ratio 1.2 Lipase Urine Color Urine Turbidity Urine pH Ur Specific [place] Urine Protein Urine Glucose (UA) Urine Ketones Urine Blood Urine Nitrite Urine Bilirubin Urine Urobilinogen Ur Leukocyte Esterase Urine WBC (Auto) Urine RBC (Auto) U Epithel Cells (Auto) Urine Mucus Assessment and Plan 1.abdominal abscess -afebrile -WBC WNL -H/H WNL-no signs of active bleeding -abd CT showed 2.5 cm fluid collection in the left abdomen containing gas consistent with a small abscess -etiology-patient was seen here in May of this year for similar symptoms and was found to have an area of colitis of the mid descending colon with a small area of intestinal perforation thought to be 2/2 infection vs related to fish bone. He signed out AMA and then was re-hospitalized in [place] with an abscess found and drained. He was treated with antibiotics with recommendations for an outpatient colonoscopy and f/u with surgery for possible resection, however patient has not followed up and now presents with recurrent LLQ abd pain and abscess seen on CT (recurrence vs unresolved issue?). -clinically, patient is stable. Reports feeling better with nausea resolved and abd pain improving. Tolerating clears. -surgery following with no recommendations or surgical intervention at this time -will request records from [place] -agree with IV antibiotics-recommend ID consult for recommendations -patient will need a colonoscopy as an outpatient for further revaluation (r/o neoplasm or IBD) once acute process has resolved -continue supportive care -will follow <NEVILLE CARPIO - Last Filed: 11/07/18 13:43> Medications and Allergies Active Meds: Active Medications Acetaminophen (Tylenol) 650 mg PO Q4H PRN PRN Reason: Pain MILD(1-3)/Fever >100.5/NOBLE Famotidine (Pepcid) 20 mg IV BID [facility] Last Admin: 11/07/18 10:10 Dose: 20 mg Documented by: Hydromorphone HCl (Dilaudid) 1 mg IV Q3H PRN PRN Reason: Pain , Severe (7-10) Last Admin: 11/07/18 13:25 Dose: 1 mg Documented by: Metronidazole (Flagyl 500 Mg/100 Ml) 500 mg in 100 mls @ 100 mls/hr IV Q8HR MENDOZA; Protocol Last Admin: 11/07/18 13:10 Dose: 100 mls/hr Documented by: Dextrose/Sodium Chloride (D5ns) 1,000 mls @ 75 mls/hr IV DIRECT MENDOZA Last Admin: 11/07/18 12:57 Dose: 75 mls/hr Documented by: Piperacillin Sod/Tazobactam Sod (Zosyn/Ns 4.5gm/100ml) 4.5 gm in 100 mls @ 200 mls/hr IV Q8HR MENDOZA; Protocol Last Admin: 11/07/18 13:10 Dose: 200 mls/hr Documented by: Ondansetron HCl (Zofran) 4 mg IV Q8H PRN PRN Reason: Nausea And Vomiting Sodium Chloride (Sodium Chloride Flush Syringe 10 Ml) 10 ml IV BID [facility] Last Admin: 11/07/18 10:10 Dose: 10 ml Documented by: Sodium Chloride (Sodium Chloride Flush Syringe 10 Ml) 10 ml IV PRN PRN PRN Reason: LINE FLUSH Last Admin: 11/07/18 02:20 Dose: 10 ml Documented by: Exam - Constitutional Vital Signs: Temp Pulse Resp BP Pulse Ox 98.8 F 80 20 102/61 97 11/07/18 11:42 11/07/18 11:42 11/07/18 11:42 11/07/18 11:42 11/07/18 11:42 - Labs CBC & Chem 7: 11/07/18 04:36 11/07/18 04:36 Lab Results: Laboratory Results - last 24 hr 11/06/18 11/06/18 11/06/18 13:51 13:51 22:16 WBC 8.8 RBC 4.66 Hgb 14.2 Hct 42.1 MCV 90 MCH 30 MCHC 34 RDW 13.9 Plt Count 149 Lymph % (Auto) 25.5 [place] % (Auto) 6.7 Eos % (Auto) 0.3 Baso % (Auto) 0.2 Lymph # 2.3 [place] # 0.6 Eos # 0.0 Baso # 0.0 Seg Neutrophils % 67.3 Seg Neutrophils # 5.9 Sodium 138 Potassium 3.7 Chloride 102.9 Carbon Dioxide 25 Anion Gap 14 BUN 12 Creatinine 0.7 L Estimated GFR > 60 BUN/Creatinine Ratio 17 Glucose 99 Hemoglobin A1c Calcium 9.1 Total Bilirubin 0.60 Direct Bilirubin < 0.2 AST 23 ALT 54 Alkaline Phosphatase 63 Total Protein 7.5 Albumin 4.1 Albumin/Globulin Ratio 1.2 Lipase 32 Urine Color Yellow Urine Turbidity Clear Urine pH 7.0 Ur Specific [place] 1.046 H Urine Protein <15 mg/dl Urine Glucose (UA) Neg Urine Ketones Neg Urine Blood Neg Urine Nitrite Neg Urine Bilirubin Neg Urine Urobilinogen < 2.0 Ur Leukocyte Esterase Neg Urine WBC (Auto) < 1.0 Urine RBC (Auto) < 1.0 U Epithel Cells (Auto) < 1.0 Urine Mucus Few 11/06/18 11/07/18 11/07/18 23:51 04:36 04:36 WBC 10.7 RBC 4.38 Hgb 13.6 Hct 39.6 MCV 90 MCH 31 MCHC 34 RDW 13.8 Plt Count 139 L Lymph % (Auto) 19.6 [place] % (Auto) 8.0 H Eos % (Auto) 0.2 Baso % (Auto) 0.2 Lymph # 2.1 [place] # 0.9 H Eos # 0.0 Baso # 0.0 Seg Neutrophils % 72.0 H Seg Neutrophils # 7.7 Sodium 137 Potassium 3.6 Chloride 101.7 Carbon Dioxide 23 Anion Gap 16 BUN 9 Creatinine 0.7 L Estimated GFR > 60 BUN/Creatinine Ratio 13 Glucose 109 H Hemoglobin A1c 5.7 Calcium 8.4 Total Bilirubin 1.00 Direct Bilirubin AST 17 ALT 42 Alkaline Phosphatase 58 Total Protein 6.8 Albumin 3.7 L Albumin/Globulin Ratio 1.2 Lipase Urine Color Urine Turbidity Urine pH Ur Specific [place] Urine Protein Urine Glucose (UA) Urine Ketones Urine Blood Urine Nitrite Urine Bilirubin Urine Urobilinogen Ur Leukocyte Esterase Urine WBC (Auto) Urine RBC (Auto) U Epithel Cells (Auto) Urine Mucus Assessment and Plan Patient seen and examined. Agree with note above. Recommend ID consult for management of abdominal abscess (given persistence/unresolved infection from earlier this year); should have eventual colonoscopy to r/o IBD or other lower gi path once infection is resolved. surgery following as well. will follow.
[2018-11-07] MEDS: D5NS 1,000 ML IV SCH (12:57)
--- NOTE | 2018-11-07 18:21 | Progress Note ---
Assessment and Plan Assessment and plan: 27-year-old -[place] male presents to the emergency department with left lower quadrant abdominal pain that began last night, along with some associated nausea without vomiting. The patient was here on May 02 of this year for similar complaints and was found to have an area of colitis and a small area of intestinal perforation. The patient was treated with IV antibiotics and monitoring, instead of going to the operating room for colon resection and colostomy. Patient says that he has been steadily improving until last night. The patient was following up outpatient with gastroenterology and says that he was due to have a colonoscopy last week but he missed his appointment. He has not taken anything for his symptoms prior to arrival today. (1) Abdominal abscess Current Visit: Yes Status: Acute Plan to address problem: Had Colitis and microperforation [place] 2019 Went home AMA without proper ABX shirley Was supposed to have a colonoscopy recently which he missed Started on IV Zosyn amd IV F;agy; Spivey surgery consult and GI consult requested (2) DVT prophylaxis Current Visit: No Status: Acute Plan to address problem: OnLovenox and GI prophylaxis History Interval history: Abdominal pain is improving Hospitalist Physical - Physical exam Narrative exam: - General physical appearance Positive: well developed, well nourished, no distress, no pain - Eyes Positive: normal occular movement. Negative: icteric - Respiratory Positive: normal expansion, normal respiratory effort, clear to auscultation - Cardiovascular Rhythm: regular - Abdomen Abdomen: Present: soft, tender (focal in left mid-abdomen), bowel sounds hy poactive. Absent: distended, masses, rebound, guarding, rigid, wound - Integumentary no rash, no growths, no abnormal pigmentation - Neurologic Neurologic: alert and oriented to time, place and person, motor strength and sensation are grossly intact - Psychiatric Psychiatric: appropriate mood/affect, intact judgment & insight, cooperative - Constitutional Vitals: Temp Pulse Resp BP Pulse Ox 99.4 F 79 20 115/69 98 11/07/18 17:27 11/07/18 17:27 11/07/18 17:27 11/07/18 17:27 11/07/18 17:27 General appearance: Present: no acute distress, well-nourished Results - Labs CBC & Chem 7: 11/07/18 04:36 11/07/18 04:36 Labs: Laboratory Last Values WBC 10.7 K/mm3 (4.5-11.0) 11/07/18 04:36 RBC 4.38 M/mm3 (3.65-5.03) 11/07/18 04:36 Hgb 13.6 gm/dl (11.8-15.2) 11/07/18 04:36 Hct 39.6 % (35.5-45.6) 11/07/18 04:36 MCV 90 fl (84-94) 11/07/18 04:36 MCH 31 pg (28-32) 11/07/18 04:36 MCHC 34 % (32-34) 11/07/18 04:36 RDW 13.8 % (13.2-15.2) 11/07/18 04:36 Plt Count 139 K/mm3 (140-440) L 11/07/18 04:36 Lymph % (Auto) 19.6 % (13.4-35.0) 11/07/18 04:36 [place] % (Auto) 8.0 % (0.0-7.3) H 11/07/18 04:36 Eos % (Auto) 0.2 % (0.0-4.3) 11/07/18 04:36 Baso % (Auto) 0.2 % (0.0-1.8) 11/07/18 04:36 Lymph # 2.1 K/mm3 (1.2-5.4) 11/07/18 04:36 [place] # 0.9 K/mm3 (0.0-0.8) H 11/07/18 04:36 Eos # 0.0 K/mm3 (0.0-0.4) 11/07/18 04:36 Baso # 0.0 K/mm3 (0.0-0.1) 11/07/18 04:36 Seg Neutrophils % 72.0 % (40.0-70.0) H 11/07/18 04:36 Seg Neutrophils # 7.7 K/mm3 (1.8-7.7) 11/07/18 04:36 Sodium 137 mmol/L (137-145) 11/07/18 04:36 Potassium 3.6 mmol/L (3.6-5.0) 11/07/18 04:36 Chloride 101.7 mmol/L (98-107) 11/07/18 04:36 Carbon Dioxide 23 mmol/L (22-30) 11/07/18 04:36 16 mmol/L 11/07/18 04:36 BUN 9 mg/dL (9-20) 11/07/18 04:36 0.7 mg/dL (0.8-1.5) L 11/07/18 04:36 Estimated GFR > 60 ml/min 11/07/18 04:36 13 % 11/07/18 04:36 Glucose 109 mg/dL (75-100) H 11/07/18 04:36 5.7 % (4-6) 11/06/18 23:51 Calcium 8.4 mg/dL (8.4-10.2) 11/07/18 04:36 1.00 mg/dL (0.1-1.2) 11/07/18 04:36 < 0.2 mg/dL (0-0.2) 11/06/18 13:51 AST 17 units/L (5-40) 11/07/18 04:36 ALT 42 units/L (7-56) 11/07/18 04:36 58 units/L (35-129) 11/07/18 04:36 6.8 g/dL (6.3-8.2) 11/07/18 04:36 3.7 g/dL (3.9-5) L 11/07/18 04:36 1.2 % 11/07/18 04:36 32 units/L (13-60) 11/06/18 13:51 Yellow (Yellow) 11/06/18 22:16 Clear (Clear) 11/06/18 22:16 7.0 (5.0-7.0) 11/06/18 22:16 Ur Specific [place] 1.046 (1.003-1.030) H 11/06/18 22:16 <15 mg/dl mg/dL (Negative) 11/06/18 22:16 Neg mg/dL (Negative) 11/06/18 22:16 Neg mg/dL (Negative) 11/06/18 22:16 Neg (Negative) 11/06/18 22:16 Neg (Negative) 11/06/18 22:16 Neg (Negative) 11/06/18 22:16 < 2.0 mg/dL (<2.0) 11/06/18 22:16 Ur Leukocyte Esterase Neg (Negative) 11/06/18 22:16 < 1.0 /HPF (0.0-6.0) 11/06/18 22:16 < 1.0 /HPF (0.0-6.0) 11/06/18 22:16 U Epithel Cells (Auto) < 1.0 /HPF (0-13.0) 11/06/18 22:16 Few /HPF 11/06/18 22:16 Active Medications - Current Medications Current Medications: Generic Name Dose Route Start Last Admin Trade Name Freq PRN Reason Stop Dose Admin Acetaminophen 650 mg 11/06/18 22:46 Tylenol PO Q4H PRN Pain MILD(1-3)/Fever >100.5/NOBLE Famotidine 20 mg 11/07/18 10:00 11/07/18 10:10 Pepcid IV 20 mg BID MENDOZA Administration Hydromorphone HCl 1 mg 11/06/18 22:48 11/07/18 13:25 Dilaudid IV 1 mg Q3H PRN Administration Pain , Severe (7-10) Dextrose/Sodium Chloride 1,000 mls @ 75 mls/hr 11/06/18 23:00 11/07/18 12:57 D5ns IV 75 mls/hr DIRECT MENDOZA Administration Piperacillin Sod/Tazobactam Sod 4.5 gm in 100 mls @ 200 mls/hr 11/06/18 23:00 11/07/18 13:10 Zosyn/Ns 4.5gm/100ml IV 200 mls/hr Q8HR MENDOZA Administration Protocol Ondansetron HCl 4 mg 11/06/18 22:46 Zofran IV Q8H PRN Nausea And Vomiting Sodium Chloride 10 ml 11/07/18 10:00 11/07/18 10:10 Sodium Chloride Flush Syringe 10 Ml IV 10 ml BID MENDOZA Administration Sodium Chloride 10 ml 11/06/18 22:46 11/07/18 02:20 Sodium Chloride Flush Syringe 10 Ml IV 10 ml PRN PRN Administration LINE FLUSH
[2018-11-08] MEDS: DILAUDID IV PRN ×6 (02:53→23:42)
[2018-11-08] MEDS: ZOSYN/NS 4.5GM/100ML 4.5 GM/100 ML VIAL IV SCH ×2 (06:05→13:37)
[2018-11-08] MEDS: D5NS 1,000 ML IV SCH ×3 (06:05→22:47)
[2018-11-08] MEDS: SODIUM CHLORIDE FLUSH SYRINGE 10 ML IV SCH ×2 (09:03→22:47)
[2018-11-08] MEDS: PEPCID IV SCH ×2 (09:03→22:47)
--- NOTE | 2018-11-08 10:43 | Gastroenterology Progress Note ---
<SOCORRO GREER - Last Filed: 11/08/18 10:43> Assessment and Plan 1.abdominal abscess -temp 99.2 -WBC WNL -H/H WNL-no signs of active bleeding -abd CT showed 2.5 cm fluid collection in the left abdomen containing gas consistent with a small abscess -etiology-patient was seen here in May of this year for similar symptoms and was found to have an area of colitis of the mid descending colon with a small area of intestinal perforation thought to be 2/2 infection vs related to fish bone. He signed out AMA and then was re-hospitalized in [place] with an abscess found and drained. He was treated with antibiotics with recommendations for an outpatient colonoscopy and f/u with surgery for possible resection, however patient has not followed up and now presents with recurrent LLQ abd pain and abscess seen on CT (recurrence vs unresolved issue?). -clinically, patient is stable with abd pain improving. Denies N/V. Tolerating clears. -surgery following with no recommendations or surgical intervention at this time -continue antibiotics per ID recommendations -okay to advance diet if okay with surgery -continue supportive care -patient will need to f/u in clinic upon discharge to schedule an outpatient colonoscopy for further revaluation to r/o IBD or other GI pathology once acute process has resolved -further management per surgery/ID/primary team -will sign off, please call if needed Subjective Date of service: 11/08/18 Principal diagnosis: abdominal abscess Interval history: Patient resting in bed this am talking on the phone w/o acute distress. Reports feeling kennedy with abd pain improving. No N/V or GI bleeding. Tolerating clears. Objective - Constitutional Vitals: Temp Pulse Resp BP Pulse Ox 99.2 F 81 20 106/66 97 11/08/18 05:51 11/08/18 08:50 11/08/18 09:36 11/08/18 05:51 11/08/18 05:51 General appearance: no acute distress - Respiratory Respiratory effort: normal - Cardiovascular Rhythm: regular - Gastrointestinal General gastrointestinal: Present: soft, tender (mild in LLQ), non-distended, normal bowel sounds - Neurologic Neurological: alert and oriented x3 - Labs CBC & Chem 7: 11/07/18 04:36 11/07/18 04:36 <NEVILLE CARPIO - Last Filed: 11/08/18 11:35> Assessment and Plan Patient seen and examined. Agree with note above. Clinically feels better; on IV abx. further management for surgery/ID. f/u in GI clinic in 1 month and will plan for outpatient colonoscopy to r/o IBD or other lower gi pathology. will sign off, please call as needed or with questions. Objective - Constitutional Vitals: Temp Pulse Resp BP Pulse Ox 99.2 F 81 20 106/66 97 11/08/18 05:51 11/08/18 08:50 11/08/18 09:36 11/08/18 05:51 11/08/18 05:51 - Labs CBC & Chem 7: 11/07/18 04:36 11/07/18 04:36
--- NOTE | 2018-11-08 13:20 | Progress Note ---
Assessment and Plan - Patient Problems (1) Abdominal abscess Current Visit: Yes Status: Acute Plan to address problem: Pt stable. [facility] indeed did [facility] a 4 cm collection on May 10. Our last scan on May 05 did not show an organized collection. The subsequent scan does show a more mature collec tion. Patient was found to have ESBL Escherichia coli. Based on the notes and the patient report, it appears as though he received 4 weeks of IV antibiotic therapy. the notes show meropenem as the recommended antibiotic. This is even more reason to have ID see the patient and manage his antibiotics. As he is feeling much better, I would advance his diet as tolerated. Soft diet at this point would be ok. Please call with questions. Time=10min Subjective Date of service: 11/08/18 Patient Reports: Positive: feels better, pain is less, tolerating liquids well, flatus, no bowel movement. Negative: nausea, vomiting Objective Vital Signs - 12hr 11/08/18 11/08/18 11/08/18 05:51 08:50 09:36 Temperature 99.2 F Pulse Rate 81 Pulse Rate [ 81 Right Radial] Respiratory 18 20 Rate Blood Pressure 106/66 O2 Sat by Pulse 97 Oximetry 11/08/18 11/08/18 11:41 12:13 Temperature 99.2 F Pulse Rate 78 Pulse Rate [ Right Radial] Respiratory 20 20 Rate Blood Pressure 104/68 O2 Sat by Pulse 94 Oximetry - General physical appearance no distress, no pain, other (looks well) - Respiratory normal expansion, normal respiratory effort - Abdomen soft, tender (very minimal compared to yesterday in left side of abd), not distended, not guarding, not rigid - Psychiatric oriented to time, oriented to person, oriented to place, speech is normal - Labs 11/07/18 04:36 11/07/18 04:36
--- NOTE | 2018-11-08 14:59 | Progress Note ---
Assessment and Plan Assessment and plan: 27-year-old -A[place]ij[place] male presents to the emergency department with left lower quadrant abdominal pain that began last night, along with some associated nausea without vomiting. The patient was here on May 02 of this year for similar complaints and was found to have an area of colitis and a small area of intestinal perforation. The patient was treated with IV antibiotics and monitoring, instead of going to the operating room for colon resection and colostomy. Patient says that he has been steadily improving until last night. The patient was following up outpatient with gastroenterology and says that he was due to have a colonoscopy last week but he missed his appointment. He has not taken anything for his symptoms prior to arrival today. (1) Abdominal abscess Current Visit: Yes Status: Acute Plan to address problem: Had Colitis and microperforation [place] 2019 Went home AMA without proper ABX shirley Was supposed to have a colonoscopy recently which he missed Started on IV Zosyn amd IV F;agy; [place] surgery consult and GI consult requested (2) DVT prophylaxis Current Visit: No Status: Acute Plan to address problem: OnLovenox and GI prophylaxis History Interval history: Abdominal pain is improving Hospitalist Physical - Physical exam Narrative exam: - General physical appearance Positive: well developed, well nourished, no distress, no pain - Eyes Positive: normal occular movement. Negative: icteric - Respiratory Positive: normal expansion, normal respiratory effort, clear to auscultation - Cardiovascular Rhythm: regular - Abdomen Abdomen: Present: soft, tender (focal in left mid-abdomen), bowel sounds hy poactive. Absent: distended, masses, rebound, guarding, rigid, wound - Integumentary no rash, no growths, no abnormal pigmentation - Neurologic Neurologic: alert and oriented to time, place and person, motor strength and sensation are grossly intact - Psychiatric Psychiatric: appropriate mood/affect, intact judgment & insight, cooperative - Constitutional Vitals: Temp Pulse Resp BP Pulse Ox 99.2 F 78 20 104/68 94 11/08/18 11:41 11/08/18 11:41 11/08/18 12:13 11/08/18 11:41 11/08/18 11:41 General appearance: Present: no acute distress, well-nourished Results - Labs CBC & Chem 7: 11/07/18 04:36 11/07/18 04:36 Labs: Laboratory Last Values WBC 10.7 K/mm3 (4.5-11.0) 11/07/18 04:36 RBC 4.38 M/mm3 (3.65-5.03) 11/07/18 04:36 Hgb 13.6 gm/dl (11.8-15.2) 11/07/18 04:36 Hct 39.6 % (35.5-45.6) 11/07/18 04:36 MCV 90 fl (84-94) 11/07/18 04:36 MCH 31 pg (28-32) 11/07/18 04:36 MCHC 34 % (32-34) 11/07/18 04:36 RDW 13.8 % (13.2-15.2) 11/07/18 04:36 Plt Count 139 K/mm3 (140-440) L 11/07/18 04:36 Lymph % (Auto) 19.6 % (13.4-35.0) 11/07/18 04:36 Lares % (Auto) 8.0 % (0.0-7.3) H 11/07/18 04:36 Eos % (Auto) 0.2 % (0.0-4.3) 11/07/18 04:36 Baso % (Auto) 0.2 % (0.0-1.8) 11/07/18 04:36 Lymph # 2.1 K/mm3 (1.2-5.4) 11/07/18 04:36 Lares # 0.9 K/mm3 (0.0-0.8) H 11/07/18 04:36 Eos # 0.0 K/mm3 (0.0-0.4) 11/07/18 04:36 Baso # 0.0 K/mm3 (0.0-0.1) 11/07/18 04:36 Seg Neutrophils % 72.0 % (40.0-70.0) H 11/07/18 04:36 Seg Neutrophils # 7.7 K/mm3 (1.8-7.7) 11/07/18 04:36 Sodium 137 mmol/L (137-145) 11/07/18 04:36 Potassium 3.6 mmol/L (3.6-5.0) 11/07/18 04:36 Chloride 101.7 mmol/L (98-107) 11/07/18 04:36 Carbon Dioxide 23 mmol/L (22-30) 11/07/18 04:36 16 mmol/L 11/07/18 04:36 BUN 9 mg/dL (9-20) 11/07/18 04:36 0.7 mg/dL (0.8-1.5) L 11/07/18 04:36 Estimated GFR > 60 ml/min 11/07/18 04:36 13 % 11/07/18 04:36 Glucose 109 mg/dL (75-100) H 11/07/18 04:36 5.7 % (4-6) 11/06/18 23:51 Calcium 8.4 mg/dL (8.4-10.2) 11/07/18 04:36 1.00 mg/dL (0.1-1.2) 11/07/18 04:36 < 0.2 mg/dL (0-0.2) 11/06/18 13:51 AST 17 units/L (5-40) 11/07/18 04:36 ALT 42 units/L (7-56) 11/07/18 04:36 58 units/L (35-129) 11/07/18 04:36 6.8 g/dL (6.3-8.2) 11/07/18 04:36 3.7 g/dL (3.9-5) L 11/07/18 04:36 1.2 % 11/07/18 04:36 32 units/L (13-60) 11/06/18 13:51 Yellow (Yellow) 11/06/18 22:16 Clear (Clear) 11/06/18 22:16 7.0 (5.0-7.0) 11/06/18 22:16 Ur Specific [place] 1.046 (1.003-1.030) H 11/06/18 22:16 <15 mg/dl mg/dL (Negative) 11/06/18 22:16 Neg mg/dL (Negative) 11/06/18 22:16 Neg mg/dL (Negative) 11/06/18 22:16 Neg (Negative) 11/06/18 22:16 Neg (Negative) 11/06/18 22:16 Neg (Negative) 11/06/18 22:16 < 2.0 mg/dL (<2.0) 11/06/18 22:16 Ur Leukocyte Esterase Neg (Negative) 11/06/18 22:16 < 1.0 /HPF (0.0-6.0) 11/06/18 22:16 < 1.0 /HPF (0.0-6.0) 11/06/18 22:16 U Epithel Cells (Auto) < 1.0 /HPF (0-13.0) 11/06/18 22:16 Few /HPF 11/06/18 22:16 Active Medications - Current Medications Current Medications: Generic Name Dose Route Start Last Admin Trade Name Freq PRN Reason Stop Dose Admin Acetaminophen 650 mg 11/06/18 22:46 11/07/18 20:30 Tylenol PO 650 mg Q4H PRN Administration Pain MILD(1-3)/Fever >100.5/NOBLE Famotidine 20 mg 11/07/18 10:00 11/08/18 09:03 Pepcid IV 20 mg BID MENDOZA Administration Hydromorphone HCl 1 mg 11/06/18 22:48 11/08/18 12:13 Dilaudid IV 1 mg Q3H PRN Administration Pain , Severe (7-10) Dextrose/Sodium Chloride 1,000 mls @ 42 mls/hr 11/06/18 23:00 11/08/18 06:05 D5ns IV 75 mls/hr DIRECT MENDOZA Administration Piperacillin Sod/Tazobactam Sod 4.5 gm in 100 mls @ 200 mls/hr 11/06/18 23:00 11/08/18 13:37 Zosyn/Ns 4.5gm/100ml IV 200 mls/hr Q8HR MENDOZA Administration Protocol Ondansetron HCl 4 mg 11/06/18 22:46 Zofran IV Q8H PRN Nausea And Vomiting Sodium Chloride 10 ml 11/07/18 10:00 11/08/18 09:03 Sodium Chloride Flush Syringe 10 Ml IV 10 ml BID MENDOZA Administration Sodium Chloride 10 ml 11/06/18 22:46 11/07/18 02:20 Sodium Chloride Flush Syringe 10 Ml IV 10 ml PRN PRN Administration LINE FLUSH
--- NOTE | 2018-11-08 15:57 | Consultation ---
History of Present Illness - Reason for Consult Consult date: 11/08/18 Intra-abdominal abscess Requesting physician: ANTOINE RAMAN - History of Present Illness The patient is a 27-year-old male who presented to the emergency room with complaints of left-sided abdominal pain. He underwent a CT scan of the abdomen and pelvis with IV contrast which showed a small 2.5 cm abscess in the left lower abdomen. Of note, he was hospitalized earlier this year in May 2018 secondary to colitis with CT findings of a small area of colonic perforation secondary to ?fish bone v/s infection. He was treated with IV antibiotics and then discharged on oral antibiotics. Apparently, he signed out AMA and was given PO Augmentin and Flagyl. He then went to [facility] where he was hospitalized, underwent an IR guided drain placement which was removed prior to discharge. Cultures grew ESBL Escherichia coli for which he was set up with IV ertapenem by the [facility]. Plan was for IV antibiotics followed by colonoscopy and then surgical evaluation for possible colonic resection. He followed up in the [facility] in early June 2018. He underwent a repeat CT abdomen pelvis on 06/07/2018 that showed near complete resolution of the abscess as well as significant interval decrease in the stranding surrounding the diverticula in the descending colon. His antibiotics were discontinued and patient then followed up with GI Dr. Moreno and was set up for a colonoscopy, however the patient never followed up for his colonoscopy appointment. Currently, he denies any fever or chills. His only complaint is that of left lower abdominal pain. Patient again evaluated by general surgery and GI. Recommendation is for IV antibiotics followed by outpatient colonoscopy. He is currently on Zosyn. ID was consulted for abx recommendations. Significant other at bedside. Outside records reviewed. Review of Systems: General: no fevers,chills or rigors HEENT: no new visual disturbance Respiratory: No cough, sputum, hemoptysis or shortness of breath Cardiovascular: No chest pain, syncope Gastrointestinal: No nausea, vomiting or diarrhea Genitourinary: No dysuria or hematuria Musculoskeletal: No new or worsening neck pain or back pain Neurologic: No headaches, seizures Hematologic: No easy bruising or bleeding Endocrine: No night sweats or acute weight loss Skin: negative for rash, jaundice Psychiatric: No suicidal or homicidal ideation Past History Past Medical History: other (as per HPI) Past Surgical History: Other (right inguinal hernia repair) Social history: smoking Family history: hypertension Medications and Allergies Allergies Allergy/AdvReac Type Severity Reaction Status Date / Time No Known Allergies Allergy Unverified 08/29/16 14:01 Home Medications Medication Instructions Recorded Confirmed Last Taken Type No Known Home Medications [No 11/08/18 11/08/18 Unknown History Reported Home Medications] Active Meds: Active Medications Acetaminophen (Tylenol) 650 mg PO Q4H PRN PRN Reason: Pain MILD(1-3)/Fever >100.5/NBOLE Last Admin: 11/07/18 20:30 Dose: 650 mg Documented by: Famotidine (Pepcid) 20 mg IV BID [facility] Last Admin: 11/08/18 09:03 Dose: 20 mg Documented by: Hydromorphone HCl (Dilaudid) 1 mg IV Q3H PRN PRN Reason: Pain , Severe (7-10) Last Admin: 11/08/18 15:41 Dose: 1 mg Documented by: Dextrose/Sodium Chloride (D5ns) 1,000 mls @ 42 mls/hr IV DIRECT MENDOZA Last Admin: 11/08/18 06:05 Dose: 75 mls/hr Documented by: Meropenem 1,000 mg/ Sodium (Chloride) 100 mls @ 100 mls/hr IV Q8HR MENDOZA; Protocol Ondansetron HCl (Zofran) 4 mg IV Q8H PRN PRN Reason: Nausea And Vomiting Sodium Chloride (Sodium Chloride Flush Syringe 10 Ml) 10 ml IV BID MENDOZA Last Admin: 11/08/18 09:03 Dose: 10 ml Documented by: Sodium Chloride (Sodium Chloride Flush Syringe 10 Ml) 10 ml IV PRN PRN PRN Reason: LINE FLUSH Last Admin: 11/07/18 02:20 Dose: 10 ml Documented by: Physical Examination - Physical Exam Narrative exam: Physical Exam: Constitutional: Alert, cooperative. No acute distress Head, Ears, Nose: Normocephalic, atraumatic. External ears, nose normal Eyes: Conjunctivae/corneas clear. No icterus. No ptosis. Neck: Supple, no meningeal signs Oral: dentition fair, no thrush Cardiovascular: S1, S2 normal. Respiratory: Good air entry, clear to auscultation bilaterally GI: Soft, tender in LLQ; bowel sounds normal. No peritoneal signs Musculoskeletal: No pedal edema, no cyanosis. Skin: No rash or abscess Hem/Lymphatic: No palpable cervical or supraclavicular nodes. No lymphangitis Psych: Mood ok. Affect normal Neurological: Awake, alert, oriented. No gross abnormality - Constitutional Vitals: Vital Signs Temp Pulse Resp BP Pulse Ox 99.2 F 78 20 104/68 94 11/08/18 11:41 11/08/18 11:41 11/08/18 15:41 11/08/18 11:41 11/08/18 11:41 Temperature -Last 24 Hours Temperature 99.2 F Temperature 99.2 F Temperature 98.3 F Temperature 98.7 F Temperature 99.4 F Results - Labs CBC & Chem 7: 11/07/18 04:36 11/07/18 04:36 - Imaging and Cardiology CT scan - abdomen: report reviewed, image reviewed (CT abdomen and pelvis showed a 2.5 cm fluid collection in the left abdomen containing gas with a small abscess, just anterior to the descending colon.) Assessment and Plan Cultures: 11/06/2018 blood culture: No growth 05/10/2018 [address] culture at [facility]: ESBL E.coli. It was S to FQs, Zosyn, Meropenem, Bactrim and Doripenem. A/P: 27/M with: 1) Recurrent LLQ intra-abdominal abscess: in close proximity to the descending colon. Similar presentation in May 2018, treated with several weeks of IV abx. Non compliant with colonoscopy and definitive management, now admitted with relapse. Recs: midline ordered IV Meropenem started Referral sent for IV Abx: Ertapenem 1 gm daily x 3 weeks ? IR for possible aspiration v/s drainage. He is at risk of treatment failure given prior exposure to prolonged abx Will need definitive intervention at a future date per GI and Gen. Surgery D/W Dr. Raman and Dr. Ramires. Supriya Cope MD, FACP [facility] ([facility]) C: [phone] O: [phone] F: [phone]
[2018-11-08] MEDS: MERREM 1,000 MG in NACL 0.9% 100 ML IV SCH ×2 (16:53→22:47)
--- NOTE | 2018-11-08 17:12 | Consultation ---
History of Present Illness - Reason for Consult Consult date: 11/08/18 abscess - History of Present Illness Patient with a history of colonic perforation seen previously this year. He ultimately left without treatment and was subsequently treated with abscess drainage. He presents today with a well-circumscribed pericolonic fluid collection approximately 2 cm in diameter with communication with the colon on the left. No surrounding inflammation. Past History Past Medical History: other (as per HPI) Past Surgical History: Other (right inguinal hernia repair) Social history: smoking Family history: hypertension Medications and Allergies Allergies Allergy/AdvReac Type Severity Reaction Status Date / Time No Known Allergies Allergy Unverified 08/29/16 14:01 Home Medications Medication Instructions Recorded Confirmed Last Taken Type No Known Home Medications [No 11/08/18 11/08/18 Unknown History Reported Home Medications] Active Meds: Active Medications Acetaminophen (Tylenol) 650 mg PO Q4H PRN PRN Reason: Pain MILD(1-3)/Fever >100.5/NOBLE Last Admin: 11/07/18 20:30 Dose: 650 mg Documented by: Famotidine (Pepcid) 20 mg IV BID MENDOZA Last Admin: 11/08/18 09:03 Dose: 20 mg Documented by: Hydromorphone HCl (Dilaudid) 1 mg IV Q3H PRN PRN Reason: Pain , Severe (7-10) Last Admin: 11/08/18 15:41 Dose: 1 mg Documented by: Dextrose/Sodium Chloride (D5ns) 1,000 mls @ 42 mls/hr IV DIRECT MENDOZA Last Admin: 11/08/18 06:05 Dose: 75 mls/hr Documented by: Meropenem 1,000 mg/ Sodium (Chloride) 100 mls @ 100 mls/hr IV Q8HR MENDOZA; Pr otocol Ondansetron HCl (Zofran) 4 mg IV Q8H PRN PRN Reason: Nausea And Vomiting Sodium Chloride (Sodium Chloride Flush Syringe 10 Ml) 10 ml IV BID MENDOZA Last Admin: 11/08/18 09:03 Dose: 10 ml Documented by: Sodium Chloride (Sodium Chloride Flush Syringe 10 Ml) 10 ml IV PRN PRN PRN Reason: LINE FLUSH Last Admin: 11/07/18 02:20 Dose: 10 ml Documented by: Review of Systems All systems: negative Exam - Constitutional Vitals: Temp Pulse Resp BP Pulse Ox 99.2 F 78 20 104/68 94 11/08/18 11:41 11/08/18 11:41 11/08/18 15:41 11/08/18 11:41 11/08/18 11:41 General appearance: Present: no acute distress - EENT Eyes: Present: PERRL ENT: hearing intact - Neck Neck: Present: supple - Respiratory Respiratory effort: normal - Abdominal General gastrointestinal: Present: deferred Male genitourinary: Present: deferred - Rectal Rectal Exam: deferred - Psychiatric Psychiatric: appropriate mood/affect, cooperative Results - Labs CBC & Chem 7: 11/07/18 04:36 11/07/18 04:36 Assessment and Plan Patient fluid collection is not amenable to percutaneous drainage. Would recommend that the patient undergo colonoscopy and possible surgical resection
[2018-11-09] MEDS: MERREM 1,000 MG in NACL 0.9% 100 ML IV SCH ×3 (06:03→22:15)
[2018-11-09] MEDS: DILAUDID IV PRN ×4 (06:03→20:25)
--- NOTE | 2018-11-09 08:53 | Discharge Summary ---
Providers - Providers Date of Admission: 11/06/18 17:43 Attending physician: ANTOINE BELL MD 11/06/18 22:46 Consult to Physician [CONS] Routine Comment: Consulting Provider: JESSIE RODIRGUEZ Physician Instructions: Reason For Exam: intra-abdominal abscess 11/07/18 06:29 Consult to Physician [CONS] Routine Comment: Consulting Provider: ALICIA CARRILLO Physician Instructions: Reason For Exam: LLQ abscess 11/07/18 10:52 Consult to Case Management [CONS] Routine Services Needed at Discharge: [employer] Notified:: cm Comment:: Needs financial assistance. Ins will in 2 weeks 11/07/18 18:23 Consult to Physician [CONS] Routine Comment: Consulting Provider: NOELLE FLORENCE Physician Instructions: Reason For Exam: abdominal abscess 11/08/18 15:23 Consult to PICC Line RN [CONS] Routine Reason For Exam: midline Type Line:: Midline 11/08/18 15:25 Consult to Physician [CONS] Routine Comment: Consulting Provider: NBA MCGUIRE Physician Instructions: Reason For Exam: Eval to drain Intra-abdominal abscess [facility] Hospital[facility] Condition: Fair Hospital course: 27-year-old -[place] male presents to the emergency department with left lower quadrant abdominal pain that began last night, along with some associated nausea without vomiting. The patient was here on May 02 of this year for similar complaints and was found to have an area of colitis and a small area of intestinal perforation. The patient was treated with IV antibiotics and monitoring, instead of going to the operating room for colon resection and colostomy. Patient says that he has been steadily improving until last night. The patient was following up outpatient with gastroenterology and says that he was due to have a colonoscopy last week but he missed his appointment. He has not taken anything for his symptoms prior to arrival today. Recurrent Abdominal abscess Had Colitis and microperforation inJan 2019 Went home AMA without proper ABX [place] Was supposed to have a colonoscopy recently which he missed -Patient was treated with antibiotics, which she will complete as an outpatient. He is to follow-up with Gen. surgery and GI. He needs outpatient elective colonoscopy -He was counseled on improved adherence, Preventative health counseling performed for 17 minutes Disposition: [id number] HOME UNDER HOME TH Time spent for discharge: 33 mins Core Measure Documentation - Palliative Care Palliative Care/ Comfort Measures: Not Applicable - Core Measures Any of the following diagnoses?: none Exam - Physical Exam Narrative exam: - General physical appearance Positive: well developed, well nourished, no distress, no pain - Eyes Positive: normal occular movement. Negative: icteric - Respiratory Positive: normal expansion, normal respiratory effort, clear to auscultation - Cardiovascular Rhythm: regular - Abdomen Abdomen: Present: soft, tender (focal in left mid-abdomen), bowel sounds hypoactive. Absent: distended, masses, rebound, guarding, rigid, wound - Integumentary no rash, no growths, no abnormal pigmentation - Neurologic Neurologic: alert and oriented to time, place and person, motor strength and sensation are grossly intact - Psychiatric Psychiatric: appropriate mood/affect, intact judgment & insight, cooperative - Constitutional Vitals: Temp Pulse Resp BP Pulse Ox 98.3 F 76 18 111/68 99 11/09/18 06:07 11/09/18 06:07 11/09/18 06:07 11/09/18 06:07 11/09/18 06:07 Plan Follow up with: [facility] [Outside] - 2-3 Days CORRY HODGES MD [Staff Physician] - 2-3 Days JOHN SCHULTZ MD [Staff Physician] - 2-3 Days Prescriptions: Oxycodone HCl/Acetaminophen [Percocet 10/325 mg] 1 each PO Q6HR PRN #30 tablet PRN Reason: Pain
[2018-11-09] MEDS: SODIUM CHLORIDE FLUSH SYRINGE 10 ML IV SCH ×2 (09:47→22:16)
[2018-11-09] MEDS: PEPCID IV SCH ×2 (09:49→22:16)
--- NOTE | 2018-11-09 10:02 | Progress Note ---
Assessment and Plan Cultures: 11/06/2018 blood culture: No growth 05/10/2018 IR drainage culture at [facility]: ESBL E.coli. It was S to FQs, Zosyn, Meropenem, Bactrim and Doripenem. A/P: 27/M with: 1) Recurrent LLQ intra-abdominal abscess: in close proximity to the descending colon. Similar presentation in May 2018, treated with several weeks of IV abx. Non compliant with colonoscopy and definitive management, now admitted with relapse. Per Dr. Guadalupe - Patient fluid collection is not amenable to percutaneous drainage. It is recommended that he undergo colonoscopy and possible surgical resection. Recs: midline ordered - waiting for placement Continue Meropenem 1gm IV every 8 hours, D2 Referral sent for IV Abx: Ertapenem 1 gm IV daily x 3 weeks ending 11-29-18 Follow-up with GI and General surgery outpatient [facility] M: [phone] O:[phone] Subjective Date of service: 11/09/18 Principal diagnosis: abdominal abscess Interval history: Patient seen and examined. Reports no reports LLQ pain and tenderness. No fevers . Objective - Exam Narrative Exam: Constitutional: Alert, cooperative. Mild distress observed Head, Ears, Nose: Normocephalic, atraumatic. External ears, nose normal Eyes: Conjunctivae/corneas clear. No icterus. No ptosis. Neck: Supple, no meningeal signs Oral: dentition fair, no thrush Cardiovascular: S1, S2 normal. Respiratory: Good air entry, clear to auscultation bilaterally GI: Soft, tender in LLQ; bowel sounds normal. No peritoneal signs Musculoskeletal: No pedal edema, no cyanosis. Skin: No rash or abscess Hem/Lymphatic: No palpable cervical or supraclavicular nodes. No lymphangitis Psych: Mood ok. Affect normal Neurological: Awake, alert, oriented. No gross abnormality - Constitutional Vitals: Vital Signs Temp Pulse Resp BP Pulse Ox 98.3 F 76 18 111/68 99 11/09/18 06:07 11/09/18 06:07 11/09/18 06:07 11/09/18 06:07 11/09/18 06:07 Temperature -Last 24 Hours Temperature 98.3 F Temperature 98.7 F Temperature 98.9 F Temperature 99.2 F - Labs CBC & Chem 7: 11/07/18 04:36 11/07/18 04:36
--- NOTE | 2018-11-09 13:19 | Progress Note ---
Assessment and Plan - Patient Problems (1) Abdominal abscess Current Visit: Yes Status: Acute Plan to address problem: Pt stable. No new issues. Tolerating diet. Ok to d/c from my standpoint. Needs out-pt c-scope and possible surgery to follow. [facility] indeed did [facility] a 4 cm collection on May 10. Our last scan on May 05 did not show an organized collection. The subsequent scan does show a more mature collection. Patient was found to have ESBL Escherichia coli. Based on the notes and the patient report, it appears as though he received 4 weeks of IV antibiotic therapy. the notes show meropenem as the recommended antibiotic. This is even more reason to have ID see the patient and manage his antibiotics. Please call with questions. Time=10min Subjective Date of service: 11/09/18 Patient Reports: Positive: no new complaints, tolerating a regular diet, diarrhea. Negative: nausea, vomiting Objective Vital Signs - 12hr 11/09/18 11/09/18 06:07 12:03 Temperature 98.3 F 97.8 F Pulse Rate 76 67 Respiratory 18 16 Rate Blood Pressure 111/68 119/78 O2 Sat by Pulse 99 97 Oximetry - General physical appearance no distress, no pain, other (rsting comfortably) - Respiratory normal expansion, normal respiratory effort - Abdomen soft, tender (minimal on left side), not distended - Integumentary no rash, no growths, no abnormal pigmentation - Psychiatric oriented to time, oriented to person, oriented to place, speech is normal, memory intact - Labs 11/07/18 04:36 11/07/18 04:36
[2018-11-09] MEDS: D5NS 1,000 ML IV SCH (22:17)
[2018-11-10] MEDS: MERREM 1,000 MG in NACL 0.9% 100 ML IV SCH ×2 (05:45→13:01)
[2018-11-10] MEDS: PEPCID IV SCH (08:59)
[2018-11-10] MEDS: SODIUM CHLORIDE FLUSH SYRINGE 10 ML IV SCH (09:01)
[2018-11-10] MEDS: DILAUDID IV PRN ×2 (09:43→12:58)
[2018-11-10 13:03] VITALS: BP 138/88
--- NOTE | 2018-11-10 13:12 | Progress Note ---
Assessment and Plan Cultures: 11/06/2018 blood culture: No growth 05/10/2018 IR drainage culture at [facility]: ESBL E.coli. It was S to FQs, Zosyn, Meropenem, Bactrim and Doripenem. A/P: 27/M with: 1) Recurrent LLQ intra-abdominal abscess: in close proximity to the descending colon. Similar presentation in May 2018, treated with several weeks of IV abx. Non compliant with colonoscopy and definitive management, now admitted with relapse. Per Dr. Guadalupe - Patient fluid collection is not amenable to percutaneous drainage. It is recommended that he undergo colonoscopy and possible surgical resection. Recs: Continue Meropenem 1gm IV every 8 hours, D3 Anticipate discharge on Ertapenem 1 gm IV daily x 3 weeks ending 11-29-18 Order placed with Case Management Follow-up with GI and General surgery outpatient Follow-up ID clinic in 2 weeks (sent to enrollment eligibility representative) Dr. Cope will be honey liquefier this weekend, , please call for questions. Salina Jacobo NP [facility] M: [phone] O:[phone] Subjective Date of service: 11/10/18 Principal diagnosis: abdominal abscess Interval history: Patient seen and examined. No generalized pain or weakness reported. Out of the bed ambulating. No fevers. Objective - Exam Narrative Exam: Constitutional: Alert, cooperative. No acute distress. Head, Ears, Nose: Normocephalic, atraumatic. External ears, nose normal Eyes: Conjunctivae/corneas clear. No icterus. No ptosis. Neck: Supple, no meningeal signs Oral: dentition fair, no thrush Cardiovascular: S1, S2 normal. Respiratory: Good air entry, clear to auscultation bilaterally GI: Soft, slightly tender in LLQ; bowel sounds normal. No peritoneal signs Musculoskeletal: No pedal edema, no cyanosis. Skin: No rash or abscess Hem/Lymphatic: No palpable cervical or supraclavicular nodes. No lymphangitis Psych: Mood ok. Affect normal Neurological: Awake, alert, oriented. No gross abnormality - Constitutional Vitals: Vital Signs Temp Pulse Resp BP Pulse Ox 98.6 F 77 20 125/79 97 11/10/18 06:55 11/10/18 06:55 11/10/18 06:55 11/10/18 06:55 11/10/18 06:55 Temperature -Last 24 Hours Temperature 98.6 F Temperature 98.7 F - Labs CBC & Chem 7: 11/07/18 04:36 11/07/18 04:36
--- NOTE | 2018-11-10 15:35 | Progress Note ---
Assessment and Plan Assessment and plan: 27-year-old -[place] male presents to the emergency department with left lower quadrant abdominal pain that began last night, along with some associated nausea without vomiting. The patient was here on May 02 of this year for similar complaints and was found to have an area of colitis and a small area of intestinal perforation. The patient was treated with IV antibiotics and monitoring, instead of going to the operating room for colon resection and colostomy. Patient says that he has been steadily improving until last night. The patient was following up outpatient with gastroenterology and says that he was due to have a colonoscopy last week but he missed his appointment. He has not taken anything for his symptoms prior to arrival today. (1) Abdominal abscess Current Visit: Yes Status: Acute Plan to address problem: Had Colitis and microperforation [place] 2019 Went home AMA without proper ABX shirley Was supposed to have a colonoscopy recently which he missed Started on IV Zosyn amd IV F;agy; [place] surgery consult and GI consult requested (2) DVT prophylaxis Current Visit: No Status: Acute Plan to address problem: OnLovenox and GI prophylaxis History Interval history: Abdominal pain is improving Hospitalist Physical - Physical exam Narrative exam: - General physical appearance Positive: well developed, well nourished, no distress, no pain - Eyes Positive: normal occular movement. Negative: icteric - Respiratory Positive: normal expansion, normal respiratory effort, clear to auscultation - Cardiovascular Rhythm: regular - Abdomen Abdomen: Present: soft, tender (focal in left mid-abdomen), bowel sounds hy poactive. Absent: distended, masses, rebound, guarding, rigid, wound - Integumentary no rash, no growths, no abnormal pigmentation - Neurologic Neurologic: alert and oriented to time, place and person, motor strength and sensation are grossly intact - Psychiatric Psychiatric: appropriate mood/affect, intact judgment & insight, cooperative - Constitutional Vitals: Temp Pulse Resp BP Pulse Ox 98.5 F 73 16 138/88 98 11/10/18 11:57 11/10/18 11:57 11/10/18 11:57 11/10/18 11:57 11/10/18 11:57 General appearance: Present: no acute distress Results - Labs CBC & Chem 7: 11/07/18 04:36 11/07/18 04:36 Labs: Laboratory Last Values WBC 10.7 K/mm3 (4.5-11.0) 11/07/18 04:36 RBC 4.38 M/mm3 (3.65-5.03) 11/07/18 04:36 Hgb 13.6 gm/dl (11.8-15.2) 11/07/18 04:36 Hct 39.6 % (35.5-45.6) 11/07/18 04:36 MCV 90 fl (84-94) 11/07/18 04:36 MCH 31 pg (28-32) 11/07/18 04:36 MCHC 34 % (32-34) 11/07/18 04:36 RDW 13.8 % (13.2-15.2) 11/07/18 04:36 Plt Count 139 K/mm3 (140-440) L 11/07/18 04:36 Lymph % (Auto) 19.6 % (13.4-35.0) 11/07/18 04:36 [place] % (Auto) 8.0 % (0.0-7.3) H 11/07/18 04:36 Eos % (Auto) 0.2 % (0.0-4.3) 11/07/18 04:36 Baso % (Auto) 0.2 % (0.0-1.8) 11/07/18 04:36 Lymph # 2.1 K/mm3 (1.2-5.4) 11/07/18 04:36 [place] # 0.9 K/mm3 (0.0-0.8) H 11/07/18 04:36 Eos # 0.0 K/mm3 (0.0-0.4) 11/07/18 04:36 Baso # 0.0 K/mm3 (0.0-0.1) 11/07/18 04:36 Seg Neutrophils % 72.0 % (40.0-70.0) H 11/07/18 04:36 Seg Neutrophils # 7.7 K/mm3 (1.8-7.7) 11/07/18 04:36 Sodium 137 mmol/L (137-145) 11/07/18 04:36 Potassium 3.6 mmol/L (3.6-5.0) 11/07/18 04:36 Chloride 101.7 mmol/L (98-107) 11/07/18 04:36 Carbon Dioxide 23 mmol/L (22-30) 11/07/18 04:36 16 mmol/L 11/07/18 04:36 BUN 9 mg/dL (9-20) 11/07/18 04:36 0.7 mg/dL (0.8-1.5) L 11/07/18 04:36 Estimated GFR > 60 ml/min 11/07/18 04:36 13 % 11/07/18 04:36 Glucose 109 mg/dL (75-100) H 11/07/18 04:36 5.7 % (4-6) 11/06/18 23:51 Calcium 8.4 mg/dL (8.4-10.2) 11/07/18 04:36 1.00 mg/dL (0.1-1.2) 11/07/18 04:36 < 0.2 mg/dL (0-0.2) 11/06/18 13:51 AST 17 units/L (5-40) 11/07/18 04:36 ALT 42 units/L (7-56) 11/07/18 04:36 58 units/L (35-129) 11/07/18 04:36 6.8 g/dL (6.3-8.2) 11/07/18 04:36 3.7 g/dL (3.9-5) L 11/07/18 04:36 1.2 % 11/07/18 04:36 32 units/L (13-60) 11/06/18 13:51 Yellow (Yellow) 11/06/18 22:16 Clear (Clear) 11/06/18 22:16 7.0 (5.0-7.0) 11/06/18 22:16 Ur Specific [place] 1.046 (1.003-1.030) H 11/06/18 22:16 <15 mg/dl mg/dL (Negative) 11/06/18 22:16 Neg mg/dL (Negative) 11/06/18 22:16 Neg mg/dL (Negative) 11/06/18 22:16 Neg (Negative) 11/06/18 22:16 Neg (Negative) 11/06/18 22:16 Neg (Negative) 11/06/18 22:16 < 2.0 mg/dL (<2.0) 11/06/18 22:16 Ur Leukocyte Esterase Neg (Negative) 11/06/18 22:16 < 1.0 /HPF (0.0-6.0) 11/06/18 22:16 < 1.0 /HPF (0.0-6.0) 11/06/18 22:16 U Epithel Cells (Auto) < 1.0 /HPF (0-13.0) 11/06/18 22:16 Few /HPF 11/06/18 22:16 Active Medications - Current Medications Current Medications: Generic Name Dose Route Start Last Admin Trade Name Freq PRN Reason Stop Dose Admin Acetaminophen 650 mg 11/06/18 22:46 11/07/18 20:30 Tylenol PO 650 mg Q4H PRN Administration Pain MILD(1-3)/Fever >100.5/NOBLE Famotidine 20 mg 11/07/18 10:00 11/10/18 08:59 Pepcid IV 20 mg BID MENDOZA Administration Hydromorphone HCl 1 mg 11/06/18 22:48 11/10/18 12:58 Dilaudid IV 1 mg Q3H PRN Administration Pain , Severe (7-10) Dextrose/Sodium Chloride 1,000 mls @ 42 mls/hr 11/06/18 23:00 11/09/18 22:17 D5ns IV 75 mls/hr DIRECT MENDOZA Administration Meropenem 1,000 mg/ Sodium 100 mls @ 100 mls/hr 11/08/18 16:00 11/10/18 13:01 Chloride IV 100 mls/hr Q8HR MENDOZA Administration Protocol Ondansetron HCl 4 mg 11/06/18 22:46 Zofran IV Q8H PRN Nausea And Vomiting Sodium Chloride 10 ml 11/07/18 10:00 11/10/18 09:01 Sodium Chloride Flush Syringe 10 Ml IV 10 ml BID MENDOZA Administration Sodium Chloride 10 ml 11/06/18 22:46 11/07/18 02:20 Sodium Chloride Flush Syringe 10 Ml IV 10 ml PRN PRN Administration LINE FLUSH
== END 2018-11-10 16:00 | disposition home health service (06) | DRG 373 ==
LOC: ED 12:29 → 3A 17:43
PROVIDERS: ADMIT Internal Medicine; ATTEND Internal Medicine
PROC: 05HY33Z Insertion of Infusion Device into Upper Vein, Percutaneous Approach (ICD-10-PCS; principal; 2018-11-09)
DX: K65.1 Peritoneal abscess (principal); F17.200 Nicotine dependence, unspecified, uncomplicated; Z79.899 Other long term (current) drug therapy; Z82.49 Family history of ischemic heart disease and other diseases of the circulatory system
CPT/HCPCS: 36415; 74019; 74177; 80048; 80053; 80076; 81001; 83036; 83690; 85025; 87040; 87116; 96361; 96374; 96375; 99406; G0378; J0692; J1170; J2185; J2270; J2405; J2543; J7030; J7042; Q9967

== ENCOUNTER 2018-11-15 13:49 | Emergency (ER) | payer BC ==
[2018-11-15] MEDS ORDERED: CATHFLO IV ONE ×2 (14:07)
--- NOTE | 2018-11-15 14:08 | Event Note ---
ED Screening Note ED Screening Note: pt just dc from hosp he is getting iv antibiotics for abd infection to a left arm midline the midline flushes well but pt co pain This initial assessment/diagnostic orders/clinical plan/treatment(s) is/are subject to change based on patients health status, clinical progression and re- assessment by fellow clinical providers in the ED. Further treatment and workup at subsequent clinical providers discretion. Patient/guardian urged not to elope from the ED as their condition may be serious if not clinically assessed and managed. Initial orders include: picc team phoned
--- NOTE | 2018-11-15 16:00 | Emergency Department Report ---
ED Recheck HPI - General Chief Complaint: Chest Pain Stated Complaint: MIDLINE CLOGGED Time Seen by Provider: 11/15/18 14:08 Source: patient Mode of arrival: Ambulatory Limitations: No Limitations - History of Present Illness Initial Comments: pt comes to ER because his LUE midline is painful with flushing. His home health nurse sent him to ER. He is getting antibiotics for abd infection vss. no fever. neurovasc intact. - Related Data Previous Rx's Medication Instructions Recorded Last Taken Type Oxycodone HCl/Acetaminophen 1 each PO Q6HR PRN #30 tablet 11/09/18 Unknown Rx [Percocet 10/325 mg] Allergies Allergy/AdvReac Type Severity Reaction Status Date / Time No Known Allergies Allergy Unverified 08/29/16 14:01 ED Review of Systems ROS: Stated complaint: MIDLINE CLOGGED Other details as noted in HPI Comment: All other systems reviewed and negative ED Past Medical Hx - Past Medical History Hx Congestive Heart Failure: No Hx Diabetes: No Hx Deep Vein Thrombosis: No Hx Pulmonary Embolism: No Hx Asthma: No Hx COPD: No Hx Tuberculosis: No Hx HIV: No Additional medical history: perferated colon - Surgical History Hx Pacemaker: No Hx Internal Defibrillator: No Additional Surgical History: right inguinal hernia repair - Family History Family history: no significant - Social History Smoking Status: Current Every Day Smoker Substance Use Type: None - Medications Home Medications: Home Medications Medication Instructions Recorded Confirmed Last Taken Type Oxycodone HCl/Acetaminophen 1 each PO Q6HR PRN #30 tablet 11/09/18 Unknown Rx [Percocet 10/325 mg] ED Physical Exam - General Limitations: No Limitations General appearance: alert - Head Head exam: Present: normocephalic - Eye Eye exam: Present: normal appearance - ENT ENT exam: Present: mucous membranes moist - Neck Neck exam: Present: normal inspection - Respiratory Respiratory exam: Present: normal lung sounds bilaterally - Cardiovascular Cardiovascular Exam: Present: regular rate - GI/Abdominal GI/Abdominal exam: Present: soft, normal bowel sounds - Extremities Exam Extremities exam: Present: normal inspection, full ROM - Back Exam Back exam: Present: normal inspection, full ROM - Neurological Exam Neurological exam: Present: alert, oriented X3, CN II-XII intact - Psychiatric Psychiatric exam: Present: normal affect, normal mood - Skin Skin exam: Present: warm, dry ED Course Vital Signs 11/15/18 11/15/18 13:54 16:44 Temperature 98.4 F Pulse Rate 88 81 Respiratory 18 16 Rate Blood Pressure 124/80 Blood Pressure 121/78 [Left] O2 Sat by Pulse 100 98 Oximetry ED Recheck MDM - Core Measures Measure Exclusions: not indicated - Medical Decision Making pt has LUE midline that is painful to flush. it flushes easy but with pain IV team consulted and new midline placed no pain with flushing vss dc home with usual plan of care. Vital Signs 11/15/18 11/15/18 13:54 16:44 Temperature 98.4 F Pulse Rate 88 81 Respiratory 18 16 Rate Blood Pressure 124/80 Blood Pressure 121/78 [Left] O2 Sat by Pulse 100 98 Oximetry Critical care attestation.: If time is entered above; I have spent that time in minutes in the direct care of this critically ill patient, excluding procedure time. ED Disposition Clinical Impression: IV infusion line dysfunction Disposition: DC-01 TO HOME OR SELFCARE Is pt being admited?: No Does the pt Need Aspirin: No Condition: Stable Additional Instructions: follow up with your home health RN as per your routine continue meds per routine Referrals: LAW MELENDEZ MD [Primary Care Provider] - 3-5 Days Time of Disposition: 16:29
[2018-11-15 16:50] VITALS: BP 121/78
== END 2018-11-15 16:44 | disposition home or self-care (01) ==
LOC: ED 13:49
DX: T80.89XA Other complications following infusion, transfusion and therapeutic injection, initial encounter (principal); F17.200 Nicotine dependence, unspecified, uncomplicated; Z79.899 Other long term (current) drug therapy
CPT/HCPCS: 99282

== ENCOUNTER 2020-02-08 11:27 | Emergency (ER) | payer SELFPAY ==
[2020-02-08 12:39] VITALS: BP 131/83
[2020-02-08 13:53] LABS: Color,Urine Yellow (Yellow)
[2020-02-08 13:54] LABS: Bilirubin,Urine NEG (Negative); Blood,Urine NEG (Negative); Mucus,Urine FEW /HPF; Protein,Urine <15 mg/dL mg/dL (Negative); Urobilinogen,Urine < 2.0 mg/dL (<2.0)
--- NOTE | 2020-02-08 14:10 | Emergency Department Report ---
ED Male HPI - General Chief complaint: Urogenital-Male Stated complaint: BURNING Time Seen by Provider: 02/08/20 13:01 Source: patient Mode of arrival: Ambulatory Limitations: No Limitations - History of Present Illness MD Complaint: penile discharge, dysuria -: Sudden Location: penis Radiation: none Severity: mild Quality: burning Consistency: constant Worsens with: urination new medication discharge, other (Girlfriend diagnosed with chlamydia he reports having penile burning testicular irritation and suprapubic discomfort) - Related Data Previous Rx's Medication Instructions Recorded Last Taken Type Oxycodone HCl/Acetaminophen 1 each PO Q6HR PRN #30 tablet 11/09/18 Unknown Rx [Percocet 10/325 mg] Azithromycin [Zithromax TAB] 1,000 mg PO ONCE #2 tablet 02/08/20 Unknown Rx DOXYCYCLINE Hyclate [Vibramycin 100 mg PO BID #28 capsule 02/08/20 Unknown Rx CAP] ceFIXime [Cefixime] 400 mg PO ONCE #1 capsule 02/08/20 Unknown Rx metroNIDAZOLE [Flagyl] 2,000 mg PO ONCE #4 tablet 02/08/20 Unknown Rx Allergies Allergy/AdvReac Type Severity Reaction Status Date / Time No Known Allergies Allergy Unverified 08/29/16 14:01 ED Review of Systems ROS: Stated complaint: BURNING Other details as noted in HPI Comment: All other systems reviewed and negative ED Past Medical Hx - Past Medical History Previous Medical History?: Yes Hx Congestive Heart Failure: No Hx Diabetes: No Hx Deep Vein Thrombosis: No Hx Pulmonary Embolism: No Hx Asthma: No Hx COPD: No Hx Tuberculosis: No Hx HIV: No Additional medical history: perferated colon - Surgical History Past Surgical History?: Yes Hx Pacemaker: No Hx Internal Defibrillator: No Additional Surgical History: right inguinal hernia repair - Social History Smoking Status: Current Every Day Smoker Substance Use Type: None - Medications Home Medications: Home Medications Medication Instructions Recorded Confirmed Last Taken Type Oxycodone HCl/Acetaminophen 1 each PO Q6HR PRN #30 tablet 11/09/18 Unknown Rx [Percocet 10/325 mg] Azithromycin [Zithromax TAB] 1,000 mg PO ONCE #2 tablet 02/08/20 Unknown Rx DOXYCYCLINE Hyclate [Vibramycin 100 mg PO BID #28 capsule 02/08/20 Unknown Rx CAP] ceFIXime [Cefixime] 400 mg PO ONCE #1 capsule 02/08/20 Unknown Rx metroNIDAZOLE [Flagyl] 2,000 mg PO ONCE #4 tablet 02/08/20 Unknown Rx ED Physical Exam - General Limitations: No Limitations General appearance: alert, in no apparent distress - Head Head exam: Present: atraumatic, normocephalic - Eye Eye exam: Present: normal appearance, PERRL, EOMI Pupils: Present: normal accommodation - ENT ENT exam: Present: mucous membranes moist - Neck Neck exam: Present: normal inspection - Respiratory Respiratory exam: Present: normal lung sounds bilaterally. Absent: respiratory distress - Cardiovascular Cardiovascular Exam: Present: regular rate, normal rhythm. Absent: systolic murmur, diastolic murmur, rubs, gallop - GI/Abdominal GI/Abdominal exam: Present: soft, normal bowel sounds. Absent: tenderness, guarding, hyperactive bowel sounds, hypoactive bowel sounds, organomegaly - Rectal Rectal exam: Present: deferred - exam: Present: normal inspection External exam: Present: normal external exam - Extremities Exam Extremities exam: Present: normal inspection, normal capillary refill. Absent: pedal edema, joint swelling - Back Exam Back exam: Present: normal inspection. Absent: CVA tenderness (R), CVA tenderness (L), paraspinal tenderness, vertebral tenderness - Neurological Exam Neurological exam: Present: alert, oriented X3, CN II-XII intact, normal gait. Absent: motor sensory deficit - Psychiatric Psychiatric exam: Present: normal affect, normal mood. Absent: anxious, flat affect - Skin Skin exam: Present: warm, dry, intact, normal color. Absent: rash, cyanosis, diaphoretic, erythema, petechiae, pallor, abrasion ED Course Vital Signs 02/08/20 12:39 Temperature 98.4 F Pulse Rate 81 Respiratory 17 Rate Blood Pressure 131/83 [Left] O2 Sat by Pulse 97 Oximetry ED Medical Decision Making - Medical Decision Making 29-year-old male presents emerged department with. Discharge and dysuria from likely STD as his partner has tested positive for chlamydia. Mild testicular discomfort but normal examination. No evidence of any emergent medical condition at current. We will treat him for his symptoms Critical care attestation.: If time is entered above; I have spent that time in minutes in the direct care of this critically ill patient, excluding procedure time. ED Disposition Clinical Impression: Dysuria, Exposure to STD Disposition: DC-01 TO HOME OR SELFCARE Is pt being admited?: No Does the pt Need Aspirin: No Condition: Stable Instructions: Chlamydia Infection (ED), Sexually Transmitted Diseases (ED), Safe Sex (ED) Prescriptions: ceFIXime [Cefixime] 400 mg PO ONCE #1 capsule metroNIDAZOLE [Flagyl] 2,000 mg PO ONCE #4 tablet DOXYCYCLINE Hyclate [Vibramycin CAP] 100 mg PO BID #28 capsule Azithromycin [Zithromax TAB] 1,000 mg PO ONCE #2 tablet Referrals: [facility] [Provider Group] - 3-5 Days
== END 2020-02-08 14:33 | disposition home or self-care (01) ==
LOC: ED 11:27
DX: R30.0 Dysuria (principal); Z20.2 Contact with and (suspected) exposure to infections with a predominantly sexual mode of transmission; F17.200 Nicotine dependence, unspecified, uncomplicated; Z79.899 Other long term (current) drug therapy
CPT/HCPCS: 81001; 87086; 99283

== ENCOUNTER 2021-05-02 10:01 | Emergency (ER) | payer SELFPAY ==
[2021-05-02 10:08] VITALS: BP 113/80
[2021-05-02] MEDS ORDERED: PANTOPRAZOLE 40 MG INJ IV ONE ×2 (10:16→12:29)
[2021-05-02] MEDS ORDERED: ONDANSETRON 4 MG/2 ML INJ IV ONE (10:16)
[2021-05-02] MEDS ORDERED: MORPHINE 4 MG/1 ML INJ IV ONE (10:16)
[2021-05-02] MEDS ORDERED: SODIUM CHLORIDE 0.9% 1000 ML 1,000 ML IV ONE (10:16)
--- NOTE | 2021-05-02 10:24 | Emergency Department Report ---
ED Abdominal Pain HPI - General Chief Complaint: Abdominal Pain Stated Complaint: FLANK Time Seen by Provider: 05/02/21 10:13 Source: patient, EMS Mode of arrival: Stretcher Limitations: No Limitations - History of Present Illness Initial Comments: Patient is 30 years old male with history of colitis and colon perforation for which he had colon resection and colostomy approximately 1 year ago. Patient presented to the ER complaining of lower abdominal pain since last night. Patient describes his pain as sharp and crampy 10 out of 10 with no radiation. Patient also described nausea and vomiting. He denied any diarrhea. No fever or chills. MD Complaint: abdominal pain -: days(s) Location: diffuse Radiation: none Migration to: no migration Severity scale (0 -10): 3 Quality: cramping Associated Symptoms: nausea - Related Data Previous Rx's Medication Instructions Recorded Last Taken Type Oxycodone HCl/Acetaminophen 1 each PO Q6HR PRN #30 tablet 11/09/18 Unknown Rx [Percocet 10/325 mg] Azithromycin [Zithromax TAB] 1,000 mg PO ONCE #2 tablet 02/08/20 Unknown Rx DOXYCYCLINE Hyclate [Vibramycin 100 mg PO BID #28 capsule 02/08/20 Unknown Rx CAP] ceFIXime [Cefixime] 400 mg PO ONCE #1 capsule 02/08/20 Unknown Rx metroNIDAZOLE [Flagyl] 2,000 mg PO ONCE #4 tablet 02/08/20 Unknown Rx Allergies Allergy/AdvReac Type Severity Reaction Status Date / Time No Known Allergies Allergy Unverified 08/29/16 14:01 ED Review of Systems ROS: Stated complaint: FLANK Other details as noted in HPI Comment: All other systems reviewed and negative Constitutional: denies: chills, fever Respiratory: denies: cough, shortness of breath, SOB with exertion Cardiovascular: denies: chest pain Gastrointestinal: abdominal pain, nausea. denies: vomiting, diarrhea, constipation, hematemesis, hematochezia Musculoskeletal: denies: back pain ED Past Medical Hx - Past Medical History Hx Congestive Heart Failure: No Hx Diabetes: No Hx Deep Vein Thrombosis: No Hx Pulmonary Embolism: No Hx Asthma: No Hx COPD: No Hx Tuberculosis: No Hx HIV: No Additional medical history: perferated colon - Surgical History Hx Pacemaker: No Hx Internal Defibrillator: No Additional Surgical History: right inguinal hernia repair - Social History Smoking Status: Current Every Day Smoker Substance Use Type: None - Medications Home Medications: Home Medications Medication Instructions Recorded Confirmed Last Taken Type Oxycodone HCl/Acetaminophen 1 each PO Q6HR PRN #30 tablet 11/09/18 Unknown Rx [Percocet 10/325 mg] Azithromycin [Zithromax TAB] 1,000 mg PO ONCE #2 tablet 02/08/20 Unknown Rx DOXYCYCLINE Hyclate [Vibramycin 100 mg PO BID #28 capsule 02/08/20 Unknown Rx CAP] ceFIXime [Cefixime] 400 mg PO ONCE #1 capsule 02/08/20 Unknown Rx metroNIDAZOLE [Flagyl] 2,000 mg PO ONCE #4 tablet 02/08/20 Unknown Rx ED Physical Exam - General Limitations: No Limitations General appearance: alert, in no apparent distress - Head Head exam: Present: atraumatic, normocephalic, normal inspection - Eye Eye exam: Present: normal appearance - ENT ENT exam: Present: mucous membranes dry - Neck Neck exam: Present: normal inspection, full ROM. Absent: tenderness, meningismus - Respiratory Respiratory exam: Present: normal lung sounds bilaterally - Cardiovascular Cardiovascular Exam: Present: regular rate, normal rhythm, normal heart sounds - GI/Abdominal GI/Abdominal exam: Present: soft, tenderness, normal bowel sounds. Absent: distended, guarding, rebound, rigid, mass, bruit, pulsatile mass, hernia - Extremities Exam Extremities exam: Present: normal inspection, full ROM, normal capillary refill. Absent: tenderness - Back Exam Back exam: Present: normal inspection, full ROM. Absent: CVA tenderness (R), CVA tenderness (L) - Neurological Exam Neurological exam: Present: alert, oriented X3, CN II-XII intact - Psychiatric Psychiatric exam: Present: normal mood - Skin Skin exam: Present: warm, intact, normal color ED Course Vital Signs 05/02/21 10:05 Temperature 98.7 F Pulse Rate 87 Respiratory 18 Rate Blood Pressure 113/80 [Left] O2 Sat by Pulse 100 Oximetry ED Medical Decision Making - Lab Data Result diagrams: 05/02/21 12:27 05/02/21 12:27 - Radiology Data Radiology results: report reviewed - Medical Decision Making Patient is 30 years old male with history of colitis and colon perforation for which he had colon resection and colostomy approximately 1 year ago. Patient presented to the ER complaining of lower abdominal pain since last night. Patient describes his pain as sharp and crampy 10 out of 10 with no radiation. Patient also described nausea and vomiting. He denied any diarrhea. No fever or chills. Labs reviewed and is unremarkable. CT abdomen and pelvis showed a 3 mm nonobstructing right ureteric stone. Patient received morphine, Zofran and Dilaudid. Patient stated that his symptom is much better. Patient advised to follow-up with urologist in the next 2 to 3 days and to return to the ER if he develop any new symptoms. Critical care attestation.: If time is entered above; I have spent that time in minutes in the direct care of this critically ill patient, excluding procedure time. ED Disposition Clinical Impression: Kidney stone on right side, Ureteric colic Disposition: 01 HOME / SELF CARE / HOMELESS Is pt being admited?: No Condition: Stable Instructions: Renal Colic, [id number], Kidney Stones, [id number] Referrals: PRIMARY CAREMD [Primary Care Provider] - 3-5 Days MARIA ELENA WERNER MD [Staff Physician] - 3-5 Days
[2021-05-02 13:48] LABS: Basophils % (Auto) 0.1 % (0.0-1.8); Eosinophils % (Auto) 0.2 % (0.0-4.3); Hematocrit 45.9 % (35.5-45.6); Hemoglobin 14.8 gm/dl (11.8-15.2); Lymphocytes # (Auto) 1.7 K/mm3 (1.2-5.4); Lymphocytes % (Auto) 15.5 % (13.4-35.0); Mean Corpuscular HGB Conc 32 % (32-34); Mean Corpuscular Volume 92 fl (84-94); Monocytes # (Auto) 0.9 K/mm3 (0.0-0.8); Monocytes % (Auto) 8.6 % (0.0-7.3); Platelet Count 171 K/mm3 (140-440); Red Blood Count 4.98 M/mm3 (3.65-5.03)
[2021-05-02 13:54] LABS: Alanine Aminotransferase 84 units/L (7-56); Albumin 4.3 g/dL (3.9-5); BUN/Creatinine Ratio 16; Bilirubin,Direct < 0.2 mg/dL (0-0.2); Blood Urea Nitrogen 14 mg/dL (9-20); Calcium 9.1 mg/dL (8.4-10.2); Hemolysis Index 19
[2021-05-02] MEDS ORDERED: HYDROmorphone 1 MG/1 ML INJ IV ONE (14:42)
--- NOTE | 2021-05-02 14:57 | Cat Scan Report ---
CT ABDOMEN AND PELVIS WITH CONTRAST HISTORY: abdominal pain 100 ML OMNI 300 . COMPARISON: 11/06/2018 TECHNIQUE: CT images of the abdomen and pelvis were obtained following administration of intravenous contrast. All CT scans at this location are performed using CT dose reduction for ALARA by means of automated exposure control. CONTRAST: 100 ml of intravenous contrast administered. FINDINGS: Lungs/bones: Mild interstitial prominence of the left lung base Abdomen/pelvis: There is fatty infiltration of the liver. The liver may be mildly enlarged. Adrenal glands, pancreas, gallbladder and spleen appear normal. Bilateral kidneys appear normal in size. Ther e is inflammation surrounding the right ureter. There is a distal right ureteral stone measuring 3 mm with mild right hydroureteronephrosis. No bowel obstruction is seen. No dominant adenopathy is ident ified. Appendix appears normal. No acute bone findings. Postsurgical change in the bowel loops IMPRESSION: 1. 3 mm distal right ureteral stone with mild right hydroureteronephrosis. Mild inflammatory strandin g surrounding the right renal pelvis and right ureter and 2. Mild increased interstitial prominence within the left lower lung Signer Name: García Cotto MD Signed: 05/02/2021 2:52 PM Workstation Name: [id number]
[2021-05-02] MEDS ORDERED: KETOROLAC 30 MG/1 ML INJ IV ONE (16:01)
== END 2021-05-02 16:26 | disposition home or self-care (01) ==
LOC: ED 10:01
DX: N20.0 Calculus of kidney (principal); N23 Unspecified renal colic; Z98.890 Other specified postprocedural states; F17.200 Nicotine dependence, unspecified, uncomplicated
CPT/HCPCS: 36415; 74177; 80048; 80076; 83690; 85025; 96361; 96374; 96375; 99284; C9113; J1170; J1885; J2270; J2405; J7030; Q9967; Q0162

== ENCOUNTER 2021-05-03 22:01 | Emergency (ER) | payer SELFPAY | END 2021-05-04 01:00 | disposition left against medical advice (07) | LOC: ED 22:01 | DX: N23 Unspecified renal colic (principal); Z53.21 Procedure and treatment not carried out due to patient leaving prior to being seen by health care provider ==